=== PATIENT | male | born 1985 | race Caucasian/White ===

== ENCOUNTER 2020-05-31 14:04 | Outpatient (RCR) | payer OTHER, SELFPAY | END 2020-07-24 23:59 | LOC: IMMUN 14:04 | PROVIDERS: PCP Nurse Practitioner Family; Referring Provider Family Medicine; Visit Provider Family Medicine | DX: Z23 Encounter for immunization (principal) | CPT/HCPCS: 0001A; 0002A; 91300 ==

== ENCOUNTER 2022-08-11 08:00 | Outpatient (RCR) | payer OTHER, SELFPAY ==
--- NOTE | 2022-08-11 08:39 | BH.COMM_ITS ---
Communication Note - Communication with Client Communication Note: Met with pt today to complete initial paperwork. No si gnificant changes since pre-admission screening. Completed [place] [facility]. Denies active SI, plan, or intent. Does report passive thoughts with vague thoughts of what if I drove off the road?. Denies intent. Does report owning a firearm; however, pt is willing to give any firearms to a friend and reports her is willing to have therapist follow-up with his to ensure firearms are given to a support for safe storage. Consulted with Dr. Abarca with plan to admit to IOP with dx of F33.2
--- NOTE | 2022-08-11 09:00 | BH.SGPN.GN ---
Behaviors/Verbalizations/Mental Status: []Eye contact good. Motor activity appropriate. Speech within normal limits. Affect congruent, mood anxious and depressed. Thoughts linear, logical, no signs of hallucinations or delusions. Reviewed client?s symptom tracker, no risk for suicidal ideation, plan, or intent as of 08/11/2022. Client Response/Progress/Benefit: []Pt's first day of IOP tx. Pt reports high anxiety in the group setting, so he declined to share during his check-in. Pt admitted to IOP tx for severe depression, hopelessness, mood instability, and isolation. Pt appeared to benefit from starting IOP tx as the group structure and setting can help pt improve mental health symptoms. Pt will continue IOP tx to prevent decompensation and hospitalization. Narrative Note: []
--- NOTE | 2022-08-11 10:10 | BH.SGPN.GN ---
Behaviors/Verbalizations/Mental Status: []Client alert and oriented, casually dressed and groomed. Eye contact fair. Motor activity appropriate. Speech within normal limits. Affect constricted, mood depressed and anxious. Thoughts linear, logical, no signs of hallucinations or delusions. Client Response/Progress/Benefit: []Client was an active participant in group discussions and activity. Attentive during psychoeducation. Client engaged in activity in which group was able to make connections about how can be easier to find positives in others compared to self. Engaged in interactive discussion on the definition of perspective, how perspective is formed, and why perspective is important in treatment. Client shared his perspective towards treatment today is neutral. Will continue in IOP to increase healthy coping, stabilize moods, and prevent decompensation.
--- NOTE | 2022-08-11 14:38 | BH.MTP_ITS ---
Master Treatment Plan Patient Information Program Physician:: Dr. Abarca Primary Therapist:: Lyndsey Ellison, [facility] Psychiatric Diagnoses Psychiatric Diagnoses:: 1. Bipolar 2 disorder F31.81 2. Generalized anxiety disorder 3. Marijuana use disorder in partial remission Diagnosis Code(s):: F31.81 Estimated LOS Estimated LOS (in weeks):: 6 Problem/Goal #1 Problem/Goal #1 Stated Goal:: Client will increase mood stability, decrease depressive symptoms, and hopelessness due to Bipolar II disorder through Intensive Outpatient Program. Description of Barriers: Potential barriers include: cognitive distortions, unsure of commitment to program, negative thinking, avoidance of anxious situations, difficulty making decisions, and marital stress. Objectives Objective #1: Stated Objective: Client will learn and utilize 2-3 healthy coping strategies to manage depressive symptoms. Interventions: Therapist will utilize CBT techniques to assist client with understanding the connection between thoughts, feelings and behaviors. Education will be provided on behavioral activation. Therapist will assist client in learning internal coping strategies to manage depressive symptoms, along with helping client identify triggers. Discharge Criteria: Client will have achieved this goal when can verbalize and has practiced at least 2 healthy coping strategies that successfully manage depressive symptoms. Target Date: 09/22/22 Review Date: 09/08/22 Objective #2: Stated Objective: Pt will decrease depressive symptoms AEB pt?s score on the DSM 5 cross-cutting measure and improve pt?s daily functioning. Interventions: Through groups and individual therapy, pt will be provided with education on cognitive distortions, mistaken beliefs, and identifying and combating negative self-talk. Therapist will assist pt with getting back into the activities she once enjoyed as well as increasing healthy coping strategies. Discharge Criteria: Pt will have met this goal when pt?s score on the DSM 5 cross cutting measure for depression has been decreased and per pt?s report daily functioning has improved. Target Date: 09/22/22 Review Date: 09/08/22 Problem/Goal #2 Problem/Goal #2 Stated Goal:: Client will reduce overall frequency, intensity, and duration of the anxiety so that daily functioning is not impaired.? Description of Barriers: Potential barriers include: cognitive distortions, unsure of commitment to program, negative thinking, avoidance of anxious situations, difficulty making decisions, and marital stress. Objectives Objective #1: Stated Objective: Client will learn and implement 2-3 calming skills to reduce overall anxiety and manage anxiety symptoms. Interventions: Therapist and group sessions will help client identify physiological warning signs of anxiety, increase awareness of thoughts that increase anxiety, and identify behaviors that reinforce anxious symptoms. Group and individual counseling will teach client calming skills to help manage anxious symptoms. Discharge Criteria: Client will have achieved this goal when can verbalize at least 2 calming skills and reports skills successfully help reduce anxious symptoms. Target Date: 09/22/22 Review Date: 09/08/22 Objective #2: Stated Objective: Pt will decrease anxious symptoms AEB pt?s score on the DSM 5 cross-cutting measure improve pt?s daily functioning. Interventions: Through groups and individual therapy, pt will be provided education about anxiety?s impact on body and common physiological reaction to anxiety. Therapist will teach pt appropriate breathing techniques and build healthy coping skills to manage daily anxieties. Discharge Criteria: Pt will have met this goal when pt?s score on the DSM 5 cross cutting measure for anxiety has been decreased and per pt?s report daily functioning has improved. Target Date: 09/22/22 Review Date: 09/08/22
--- NOTE | 2022-08-11 15:28 | BH.COMM_ITS ---
Communication Note - Communication with Client Communication Note: This technical proposal writer spoke with client's informing her of plan for client to ask a family member to store his firearms until he feels more stable. Client's stated she will make sure the guns are removed from the house. This technical proposal writer informed client's that he is not reporting any active suicidal thoughts, but it would be the safest option at this time for him to not have access to guns. She expressed understanding.
--- NOTE | 2022-08-11 15:30 | BH.MDN_ITS ---
Multi-Disciplinary Note - Note 45-min Individual Time Started:: 12:10 Date: 08/11/22 Purpose of session/treatment goals addressed:: Purpose of session was to identify current symptoms and stressors, build rapport, and identify treatment goals for IOP. Eye Contact:: Good Motor Activity:: Appropriate Appearance:: Casual Speech:: Appropriate Mood:: Anxious, Depressed Affect:: Congruent Thoughts:: Linear, Logical, No evidence of hallucinations/delusions noted Staff Interventions:: psychoeducation on: - cognitive triangle, CBT techniques, rapport building, strengths perspective, treatment planning, goal setting, taught coping skills Client Response:: Client reported he is seeking treatment because he has not been able to come out of a depressive episode since February 2022. Client stated he was newly diagnosed with bipolar 2 in March 2022. Client reported he believes he started exhibiting symptoms of bipolar 2 about 3 years ago. Client stated for the last 3 years she has been cycling between having hypomania for a bout 6 months starting in mid August until February. Then from February until august he is in a depressed state with his current depressed state being the worst it has ever been. Client stated when he is hypomanic he is more motivated, feels alive, more productive, able to enjoy things, can be impulsive with money decisions, and is more irritable and short tempered. Client reported currently he does not experience steven any day and is just surviving. Client stated in January 2022 while on vacation his and him got into a significant argument in which his discussed potential separation. Client reported he believes this had triggered significant depression and has not been able to recover. 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 The farm seems to be a sense of contention. Client reported there is still continued distance and disconnection between him and his . Client stated while in treatment he would like to feel happy to wake up, being more productive, be able to return to work, and improve relationship with . Client reported he has been on many medications trials since being diagnosed with bipolar 2 with no success. Client stated he has been on lithium for about a week and has not noticed any difference. Client reported his been going to individual counseling for about a year but admits he has not followed through with many of the skills and goals provided to him by his therapist. Client receptive to learning about cognitive triangle and the importance of behavioral activation. Client worked with therapist to create a g oals list for tomorrow since he will be off work and does not have therapy. 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 Client feels like these tasks are realistic and doable. Risks/Concerns:: Client reports passive thoughts of denies active ideation, plan or intention. Client does have access to firearms in the home and is agreeable for this instructional writer to contact his to discuss plan of her removing the guns and giving them to a family member to hold until client is feeling more stable. Progress Toward Goals/Plan:: No progress noted given today is client's first day in treatment. Session focused on gathering background information, building rapport and identifying treatment goals. Client struggling with mood instability and is concerned he will find the medications that will help him feel less depressed and prevent a hypomanic state. Client to continue IOP to increase healthy coping, stabilize moods, and prevent decompensation. Time Stopped:: 12:55
--- NOTE | 2022-08-13 09:45 | BH.NA_ITS ---
Physical Data Vital Signs Pulse Rate: 84 Blood Pressure: 131/78 Height/Weight Height: 1.83 m Weight:: 95.254 kg Weight in Pounds: 210.0 lbs Current Medication Compliance Medication Compliance Do you take your medication as prescribed?: Yes Nutritional History Appetite Nutritional Instructions: Describe your appetite:: Good Have you noticed a change in your eating habits lately?: No Functional Assessment Sleep Pattern Describe any problems with sleeping: Client states he generally sleeps about 8-9 hours per night. Activities Motor Activity:: Functional Sensory/Communication Assess Communication Problems Do you have difficulty understanding what people are saying?: No Learning Assessment Education What is your level of education?: Bachelor Degree Medical Problems/History Cardiac Conditions Cardiovascular: Other (See comments) (history of slightly elevated cholesterol, not taking any medication) Pain Assessment Do you have acute or chronic pain?: No Surgical History Surgical History Have you had any surgeries? If so, list type and date:: Yes (rhinoplasty) Substance Abuse Substance Abuse Please describe substance abuse in the last 30 days:: Client states he drinks alcohol 1-2 days per week. Client states he had quit using nicotine pouches, but recently started using them daily again. Client states he had been a several year marijuana user, but quit in February. Client states he drinks 2 cups of coffee per day. Mental Status Summary Mental Status Significant Findings/Observations on Appearance and Mood:: Client is alert and oriented x 4. Client is casually groomed with good hygiene. Client is cooperative with assessment. Client makes fair eye contact. Client's voice has normal rate and volume. Client has a somewhat restricted affect. Client makes logical associations. Client has normal processing. Client denies delusions/hallucinations. Client reports some fleeting SI at times, but denies plan/intent. Suicide Assessment Suicidal Ideation Are you currently or have you been suicidal in the past?: Yes (fleeting at times, denies SI at this time) Suicidal Intentional Rating Scale (SIRS): Suicidal thoughts (past) Physician Notification Past Psychiatric History MH Treatment Hx Past Psychiatric Medications:: Started medication for mental health in April 2020- has taken Abilify, Wellbutrin, Lexapro, Prozac, Vraylar, Rexulti, Xanax Age of first mental health symptoms: Client was diagnosed with bipolar 2 in March 2021. Client had taken medication for mental health starting in 2020. Current providers for mental health treatment (counselor, psychiatrist, supportive employment case manager, etc.): Jocy Morrow MAINTENANCE ADVISOR for psychiatry through [facility], counselor Krystal at a private practice Fall Risk Assessment Age Age: Less than 60 Mental Status Mental Status: Willing & able to ask for assistance when needed Physical Status Physical Status: No problems Impairments Impairments: None Elimination Elimination: Continent AND independent Gait or Balance Gait or Balance: Walks independently Hx of Falls History of falls in the past 6 months: No known history Medications/Substances Psychotropics:: Mood stabilizers Medications/substances used within the past 24 hours or ordered to administer: 1-2 of the medications/substances listed above Total Score Total Points:: 1 RN Summary of Impressions Impressions Recommendations Impressions: Psychiatric Issues: Bipolar 2 disorder, Generalized Anxiety Disorder, marijuana use disorder in partial remission Level of Care How do the client's current symptoms and functional deficits support need for this level of care?: Client was referred to IOP by outpatient psychiatry for worsening depression. Client states in February his depression worsened and he took a couple of months off work. Client states he went back to work in April but states I think it was too soon, my depression wasn't better. Client reports frequent medication changes over the last several months. Client reports crying episodes, decreased motivation, decreased energy and anhedonia. Client reports some fleeting SI at times but denies plan or intent, but does state he has some survival ambivalence. IOP will promote gains and prevent further decompensation while providing social support and skills training.
[2022-08-13 10:10] VITALS: BP 131/78; PULSE 84
--- NOTE | 2022-08-13 10:15 | BH.SGPN.GN ---
Behaviors/Verbalizations/Mental Status: [] Client alert and oriented, casually dressed and groomed. Eye contact fair. Motor activity appropriate. Speech within normal limits. Affect constricted, mood anxious. Thoughts linear, logical, no signs of hallucinations or delusions. Client Response/Progress/Benefit: [] Client responded session by being attentive and taking notes. Client did not share input or reflect with group. Group identified the benefits of change which included: personal growth, positive perspective, increased confidence and increased autonomy. Worked with the group to identify barriers to change, which included: uncomfortable emotions such as anxiety, lack of awareness, low motivation, negative support system, and negative thinking. Client attentive in activity where they identified and discussed the emotions related to change. Appear to benefit from increased awareness and understanding of emotions, benefits, and barriers related to change. Will continue IOP tx to challenge negative thinking, increasing healthy coping, and prevent decompensation.
--- NOTE | 2022-08-13 11:15 | BH.SGPN.GN ---
Behaviors/Verbalizations/Mental Status: []Pt alert and oriented, neatly dressed and groomed. Eye contact good. Motor activity appropriate. Speech within normal limits. Affect flat, mood depressed. Thoughts linear, logical, no signs of hallucinations or delusions Client Response/Progress/Benefit: [] Pt responded well to session, attentive AEB participating in activity and actively engaging in group discussion. Group processed activity to relate the strategies used to overcome barriers in the activity to managing change in own life. Discussed and set SMART goal in group as it relates to change group members are wanting to make. Pt identified change they want as wanting to reconnect with friends. Identified being in the preparation stage as negative thinking and shame is keeping pt from following through. Pt stated to get to the action stage consistently, pt will need to challenge negative thoughts and communicate with supports. Appeared to benefit from identifying a small goal to work towards. Pt will continue IOP tx to further prevent decompensation, improve daily functioning, and gain healthy coping skills. ?? Narrative Note: []
--- NOTE | 2022-08-13 12:28 | BH.PSY.EVA_ITS ---
Psychiatric Evaluation Initial Evaluation Initial Evaluation: History of Present Illness: [] The patient is a 36-year-old male with a recent diagnosis of bipolar 2 disorder who was referred to the [facility] IOP program by his outpatient psychiatric provider. The patient has been for 7 years and currently lives with his in [place], [place]. 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 He also is taking FMLA now in order to participate in the IOP program. His biggest stressors have been since the fall 2019 when he changed his financial aid counselor work to the type of work that gets paid by [employer]. He has found this to be extremely stressful and he feels it has worsened his tendency to become depressed. 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 He gives decreased need for sleep at that time where he sleeps less than 6 hours a night and is not tired. He has excessive spending of money, rapid thoughts and gets a lot of work done during those months. This. Last usually 2 to 3 months he states and he also has a euphoric feeling during this time. His notices he is different during this time and they have some marital stress do especially to the excessive spending of money and he has done in the fall for the past 3 years. He states that the rest of the year he remains pretty much depressed and at times severely depressed in recent months. He endorses sadness, worthlessness, hopelessness, guilt and anhedonia. He has 1-2 crying spells a day. He is anxious about his job and his marriage. He is having a few mild panic attacks a week. He is getting 8 to 9 hours of sleep a night but feels tired and has low energy during the day. He has decreased concentration. He drinks 1 to 2 cups of coffee a day. Appetite and weight are okay. He denies a history of trauma, abuse, PTSD, OCD, head trauma or seizures. Also denies self-harm or eating disorder. He does admit to passive thoughts of and he admits to fleeting, passive suicidal ideation where he briefly considers driving off the road but he states that he has never come remotely close to doing this and he feels that his family is protective against him ever committing suicide. He has a long history of daily marijuana use but has been sober for the past 6 months off of marijuana. Current Psychiatric Medications: [] The patient has tried a number of meds and has not done well on them. He is currently on lithium carbonate 300 mg p.o. twice daily and has been on this dose for 4 days. He was on resulting but this was stopped 10 days ago because it made him have increased crying episodes. Past Psychiatric History: [] No psych admits. No suicide attempts ever. He has been depressed since age 32 and started psych meds around age 35. He started counseling last year. He has a psychologist counseling and a counselor. He was diagnosed with bipolar 2 in March 2022. Wellbutrin, Lexapro, Prozac, Vraylar and result he did not help or made him worse. Abilify helped him at first for 2-1/2 months but he remained mildly depressed so ended up stopping it. In August to January of 2020 he tried Adderall and Concerta for his fatigue and the Adderall made his anxiety and depression worse and the Concerta made him become hypomanic he thinks. He also tried Xanax but has not used any since January 2022. Substance Use History: [] Marijuana use daily for 10 years but stopped smoking in February with 1 relapse a month ago. He drinks 1-2 drinks of alcohol once a week. He used nicotine dip last weekend but he quit using mouth 2 months ago. He denies any other drug use and no rehab ever. Allergies: [] No known allergies Medications: [] Psych meds only as dictated above. Past Medical History: [] Moderate hypercholesterolemia. Rhinoplasty as a child. No other illnesses or surgeries. Up-to-date on his immunizations. Family Psychiatric History: [] He has a few aunts that takes psych medicine but he does not know what their condition is. His father and brother have untreated anxiety. Great-grandmother was bedridden off-and-on in her life for mental health issues but they do not know what they were. No completed suicides in the family. Personal/Social History: [] Patient was born and raised on a farm in [place]. He describes his childhood as happy. He denies any history of verbal, emotional or physical or sexual abuse or trauma. 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 He finds working and taking care of the farm extremely stressful and tiring. He feeds the animals every morning but is has trouble finding the time to keep up the farm and every other way. He has been for 7 years and describes his marriage is strained now due to their financial and his mental health issues. No children. His is 32 years old and works as a pediatric nurse practitioner and is supportive of him. His parents were and loving and he has 1 brother who is 18 months younger than him and they are close. 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 No DUIs. No arrests. Review of Systems: [] Patient has some issues with constipation but his review of systems is otherwise negative except as noted in the present illness. Vital Signs: [] Vital signs are reviewed in records and in the nurses notes and updated and the patient is deemed medically able to participate in the IOP program. Mental Status Examination: [] The patient is a 54-year-old male who is fit for stated age and casually dressed and groomed with good hygiene. He is ambulatory with a normal gait and has no psychomotor agitation or retardation. Eye contact is good and speech is normal rate and rhythm and fluent with no pressure. He is alert and oriented to person place and time. Mood is depressed. Affect is flat. Thought process is goal-directed and organized. Thought content: There is evidence of passive thoughts of and evidence of fleeting, passive suicidal ideation. There is no evidence of active suicidal ideation, homicidal ideation or definitive plan for suicide. There is no evidence of hallucinations or delusions. Reality testing is intact. Judgment is good. Insight is fair. Impulsivity is moderate. Diagnoses: [] 1. Bipolar 2 disorder 2. Generalized anxiety disorder 3. Marijuana use disorder in partial remission 4. Primary support, work and financial issues Plan: [] The patient will start the IOP program at [facility] as the structure, support, education and group therapy will hopefully prevent worsening of the patient's symptoms which could require hospitalization. He felt safe during the interview and if it anytime he does not feel safe he agrees to let us know or go to the emergency room. The risk, options, possible complications and side effects of the medications were discussed with the patient and he understands them and accepts these. His GeneSight testing was reviewed in detail with him. The patient agrees to get his lithium blood work on Thursday, August 18 for the recent dose increase. He will get it in the morning as directed. He also agrees to try Abilify 2 mg p.o. daily and prescription is sent in for this as the patient improved on this in the past and coupled with the lithium may obtain significant improvement now. He will continue to follow- up with his outpatient providers and I will see the patient in follow-up in 1 to 2 weeks.
--- NOTE | 2022-08-13 12:41 | BH.DR.ITP ---
Initial Treatment Plan Patient Information Visit Information: ADMISSION DATE: EXPECTED LOS: 4-6 weeks Problems/Symptoms Problem #1:: Mood instability Symptom:: Sadness, hopelessness, guilt, anhedonia, worthlessness, low energy, decreased concentration, passive thoughts of , passive, fleeting suicidal ideation Problem #2:: Anxiety Symptom:: Worry, rumination, panic attacks
--- NOTE | 2022-08-15 09:00 | BH.SGPN.GN ---
Behaviors/Verbalizations/Mental Status: [] Eye contact is good. Motor activity is appropriate. Appearance is casual. Speech is Appropriate. Mood is anxious. Affect is congruent. Thoughts are linear and logical. No evidence of psychosis. Reviewed daily check in sheet and no reports of suicidal ideations or intent. Client Response/Progress/Benefit: [] Pt participated at times during the group discussion. Attentive. Client reported mental positive as following through with goals set and individual therapy. Client noted he was able to even do more than what he had initially stated he would do because it helped improve his motivation to see things get accomplished. Client noted additional mental positive as spending time with friends and playing games with his and her best friend. Shan for current stressor is his 's best friend staying over the long weekend. Benefited from group support, encouragement, and feedback. Will continue in IOP to prevent decompensation, stabilize mood, and improve functioning.
--- NOTE | 2022-08-15 10:10 | BH.SGPN.GN ---
Behaviors/Verbalizations/Mental Status: []Eye contact is good. Alert and oriented. Motor activity is appropriate. Appearance is casual. grooming is appropriate. Speech is Appropriate. Mood is anxious and depressed. Affect is congruent. Thoughts are linear and logical. No evidence of psychosis or hallucinations. Client Response/Progress/Benefit: []Client passive participate AEB providing no contributions, however did appear to listen attentively to others. The group identified the impact of emotions on communication such as change in tone, body language, shutting down, misperceiving the communication, and reassurance seeking. During group activity, client did well to challenge himself to participate and reflected on feeling anxious about having to trust other's instructions in order to accomplish his goal. Client benefited from session by gaining an increased understanding on the importance of managing emotions to improve daily functioning. Client will continue IOP to improve mood stability, improve symptom management, and prevent decompensation. Narrative Note: []
--- NOTE | 2022-08-15 11:10 | BH.SGPN.GN ---
Behaviors/Verbalizations/Mental Status: []Pt alert and oriented, neatly dressed and groomed. Eye contact good. Motor activity appropriate. Speech within normal limits. Affect congruent-smiling, mood euthymic. Thoughts linear, logical, no signs of hallucinations or delusions. Client Response/Progress/Benefit: [] Pt engaged in session AEB Pt listening attentively to peers and providing input. Attentive during psychoeducation on 4 zones of regulation. Pt able to identify feelings and behaviors for each zone. Pt identified coping skills one can use to support self in each zone. Pt reports belief they are in the ?blue? zone today and pt wants to focus on exercising and working on small goals to help pt in this zone. Benefited from increased education on zones of regulation or stages of alertness for emotions and healthy coping skills to use for each zone. Will continue IOP tx to prevent decompensation, improve daily functioning, and reduce negative thinking patterns. Narrative Note: []
== END 2022-08-15 23:59 ==
LOC: BHIOP 08:00
PROVIDERS: PCP Nurse Practitioner Family; Referring Provider Psychiatry & Neurology Psychiatry; Visit Provider Psychiatry & Neurology Psychiatry
DX: F31.81 Bipolar II disorder (principal); F41.1 Generalized anxiety disorder; F12.91 Cannabis use, unspecified, in remission
CPT/HCPCS: S9480; 90834; 90853

== ENCOUNTER 2022-08-18 07:19 | Outpatient (RCR) | payer OTHER, SELFPAY ==
[2022-08-16 01:48] VITALS: BP 131/78; PULSE 84
--- NOTE | 2022-08-18 09:00 | BH.SGPN.GN ---
Behaviors/Verbalizations/Mental Status: [] Eye contact is poor. Motor activity is appropriate. Appearance is casual. Speech is Appropriate. Mood is depressed. Affect is flat. Thoughts are linear and logical. No evidence of psychosis. Reviewed daily check in sheet and pt reports 1/5 for suicidal thoughts and 0/5 for intent. This is baseline since entering the program. Client Response/Progress/Benefit: [] Pt did not participat in group discussions. Declined to share when asked. Attentive AEB by head-nodding and smiling during group discussions. Daily symptom tracker notes 3/5 for depression and anxiety. Limited progress noted due to not interacting with group this AM. Will continue in IOP to prevent decompensation, increase healthy coping, and improve functioning to return to work. Narrative Note: []
--- NOTE | 2022-08-18 10:10 | BH.SGPN.GN ---
ions/Mental Status: [] Eye contact is good. Motor activity is appropriate. Appearance is casual. Speech is Appropriate. Mood is anxious and dysthymic. Affect is constricted. Thoughts are linear and logical. No evidence of psychosis. Client Response/Progress/Benefit: [] Pt did not participate in group discussions however was attentive. Participated in and was engaged during experiential activity. Attentive during interactive discussion on what failure means to the group in which peers identified that failure is ... not meeting expectations, not having a desired outcome, and not succeeding in a task. Group was able to identify how fear of failure can lead to inaction, complacency, pushing people away, poor self-care, and self-sabotage. Attentive during interactive discussion on the role that FOF plays in mental wellness, depression, anxiety, and growth. Able to connect the experiential activity to FOF. Benefited from increased awareness of how the role that FOF plays in mental health and decision-making. Will continue in IOP to increase use of calming skills to manage anxious symptoms, challenge negative thinking, work through guilt, and prevent decompensation.
--- NOTE | 2022-08-18 15:13 | BH.MDN ---
Multi-Disciplinary Note Note 60-min Individual: Time Started:: 11:10 Date: 08/18/22 Purpose of session/treatment goals addressed:: Purpose of session was to address goals 1 and 2 from [facility]. Time Stopped:: 13:10
--- NOTE | 2022-08-20 09:03 | BH.SGPN.GN ---
Behaviors/Verbalizations/Mental Status: [] Eye contact good. Motor activity appropriate. Speech within normal limits. Affect congruent, mood anxious and depressed. Thoughts linear, logical, no signs of hallucinations or delusions. Reviewed client?s symptom tracker, no reported suicidal ideation, denies plan, or intent as of 08/20/2022. Client Response/Progress/Benefit: [] Client receptive of session, attentive and willing to process with group. Identified mental health ?wins? as completing several small goals this morning despite feeling more down and less motivated to do so. Indicated using opposite action to challenge himself to spend time swimming with family the previous day as well and shared feeling proud of this as a result. Current stressor noted as ongoing marital tension related to pt?s mental health. Shared trying to focus on doing what he can to continue to promote progress rather than ruminate on this. Client appeared to benefit from group support and encouragement. Recommended continued IOP tx to continue to provide emotional support, improve mood stability, as well as prevent decompensation. Narrative Note: []
--- NOTE | 2022-08-20 10:05 | BH.SGPN.GN ---
Behaviors/Verbalizations/Mental Status: [] Client alert and oriented, casually dressed and groomed. Eye contact good. Motor activity appropriate. Speech within normal limits. Affect full, mood anxious. Thoughts linear, logical, no signs of hallucinations or delusions. Client Response/Progress/Benefit: [] Client was an active participant in activity and taking notes during group discussion and provided input in during group discussions.. Attentive during psychoeducation on coping skills, why people use unhealthy coping skills, and how to replace unhealthy coping skills. Group came up with list of negative coping skills that included substance use, avoidance, lashing out, and escaping from reality. Group discussed the effects of how negative coping skills can impact mental health in a negative way which included lack of positive supports. Benefited from increased understanding of unhealthy coping skills and the need for developing healthy interna and external coping skills. Client will continue IOP tx to prevent decompensation and increase overall functioning. Narrative Note: []
--- NOTE | 2022-08-20 11:05 | BH.SGPN.GN ---
Behaviors/Verbalizations/Mental Status: [] Client alert and oriented, neatly dressed and groomed. Eye contact good. Motor activity appropriate. Speech within normal limits. Affect constricted, mood anxious. Thoughts linear, logical, no signs of hallucinations or delusions. Client Response/Progress/Benefit: [] Client responded well to session AEB taking notes and providing input and examples throughout. Group discussed the different categories of coping skills which included distraction, emotional release, grounding, self-love, and thought challenging. Client created a coping skill menu identifying various skills to try in each category. Client?s coping skill menu included: cleaning, talking with friend, deep breathing, taking long shower, and radical acceptance. Appeared to benefit from increasing repertoire of healthy coping skills. Client will continue IOP tx to improve daily functioning, prevent decompensation, and increase application of healthy coping skills. Narrative Note: []
--- NOTE | 2022-08-22 09:00 | BH.SGPN.GN ---
Behaviors/Verbalizations/Mental Status: [] Eye contact is good. Motor activity is appropriate. Appearance is casual. Speech is Appropriate. Mood is depressed. Affect is congruent. Thoughts are linear and logical. No evidence of psychosis. Reviewed daily check in sheet and pt reports 1/5 for suicidal thoughts and 0/5 for intent. This is baseline for patient. Client Response/Progress/Benefit: [] Pt participated when prompted. Attentive. Emotion for today is optimistic. Daily symptom tracker notes 3/5 for depression and anxiety. Pt shared that he has been attempting to utilize skills such as re-framing and opposite action with some benefit. I woke up yesterday feeling down however reframed and forced himself to work outside and make breakfast for rather than isolate. Insight on how this positively impacted his mood. Progress noted as he is beginning to feel less powerless over his mood. He scheduled at date night and is actively working on repairing his relationship by being more engaged with support. Benefited from group support, encouragement, and feedback. Will continue in IOP to prevent decompensation, stabilize mood, and improve functioning to return to work. Narrative Note: []
--- NOTE | 2022-08-22 10:10 | BH.SGPN.GN ---
Behaviors/Verbalizations/Mental Status: []Client alert and oriented, casually dressed and groomed. Eye contact good. Motor activity appropriate. Speech within normal limits. Affect congruent, mood euthymic. Thoughts linear, logical, no signs of hallucinations or delusions. Client Response/Progress/Benefit: []Client receptive to session AEB providing input throughout, listening attentively to others, and taking notes. Attentive throughout psychoeducation on the cognitive triangle and maintenance cycles. Worked on identifying own vicious cycle. Engaged in group discussion reviewing the impact of daily activities and behaviors in either reinforcing unhealthy maintenance cycles and depression or assisting in reducing symptoms (?down? vs ?up? activities). Client identified common ?down? activities they engage in as: staying in bed, not showering, watching tv, not shaving, and avoiding chores. Common ?Up? 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 Appeared to benefit from increased awareness of current behaviors and impact these have on mental health. Pt to continue IOP to increase consistent use of healthy coping, challenge negative thinking, and prevent decompensation.
--- NOTE | 2022-08-22 11:15 | BH.SGPN.GN ---
Behaviors/Verbalizations/Mental Status: []Pt alert and oriented, neatly dressed and groomed. Eye contact good. Motor activity appropriate. Speech within normal limits. Affect congruent, mood euthymic. Thoughts linear, logical, no signs of hallucinations or delusions. Client Response/Progress/Benefit: []Pt responded well to session, attentive and engaged in activity. Group shared having patience and being willing to re-evaluate helped the group be success. Group discussed values and the benefits that knowing one's values can have on one's mental health. These included: increasing motivation, resolved cognitive dissonance, and less stress. Pt explored own values and identified physical wellness and personal relationships as their top two values. Pt set a goal to schedule a date night once a week with his to live according to values. Pt appeared to benefit from exploring values and creating a weekly goal. Pt will continue IOP tx to prevent decompensation, combat negative self-talk, and further improve use of healthy coping skills. Narrative Note: []
--- NOTE | 2022-08-25 09:00 | BH.SGPN.GN ---
Behaviors/Verbalizations/Mental Status: []Pt alert and oriented, neatly dressed and groomed. Eye contact good. Motor activity appropriate. Speech within normal limits. Affect constricted-holding back tears, mood indifferent. Thoughts linear, logical, no signs of hallucinations or delusions. Reviewed pt?s symptom tracker, no risk for suicidal ideation, plan, or intent as 08/25/22 Client Response/Progress/Benefit: []Pt responded well to session, attentive and engaged. Pt reports feeling indifferent this morning as pt had a deep conversation with his over the weekend about their future. Pt became tearful and shared he is glad he had the difficult conversation, but there are a lot of tough decisions that need made because of their talk. Pt reported he utilized healthy coping skills like going fishing and opposite action to help manage anxiety after the talk. Pt appeared to benefit from reflecting on application of healthy coping skills. Pt will continue IOP tx to prevent decompensation, improve energy and motivation, and increase self-confidence. Narrative Note: []
--- NOTE | 2022-08-25 10:15 | BH.SGPN.GN ---
Behaviors/Verbalizations/Mental Status: [] Eye contact is good. Motor activity is appropriate. Appearance is casual. Speech is Appropriate. Mood is depressed. Affect is flat. Thoughts are linear and logical. No evidence of psychosis. Client Response/Progress/Benefit: [] Limited participation in group discussions however did complete worksheets on the topic. Attentive during psychoeducation. Attentive during interactive discussion on types of support. Group identified several forms of support which included; friends, family, therapy, professionals, support groups, co-workers, social media, spirituality, medications, local agencies, etc. Pt Attentive during the group discussion on the importance of support which they identified leads to; accountability, can motivate, decreased loneliness, connection with others, improved relationships, increased self-confidence, can lessen one's stress and responsibilities, and is fun/ distracting. Patient identified the obstacles/barriers to seeking support and utilizing the support they currently have in place which included fear of overusing it and also fear to use it at times, lack of planning. Benefited from increased awareness of healthy supports and the importance of balanced support. Will continue in IOP to prevent decompensation, stabilize mood, and improve functioning to return to work. Narrative Note: []
--- NOTE | 2022-08-25 11:15 | BH.SGPN.GN ---
Behaviors/Verbalizations/Mental Status: []Client alert and oriented, casually dressed and groomed. Eye contact good. Motor activity appropriate. Speech within normal limits. Affect congruent, mood depressed and anxious. Thoughts linear, logical, no signs of hallucinations or delusions. Client Response/Progress/Benefit: [] Client was an active participant throughout AEB contributing to group discussion, participating in the activity, and taking notes. Client provided input during discussion on the types of support our supports can provide (social, emotional, tangible, and informational). Able to identify the types of support pt?s own support system provides for them. Client reported gaining awareness that they could benefit from more emotional specific support. Shared this will help to provide him with a more balanced perspective. Client identified steps to achieve this as reaching out to his support net more consistently and allowing himself to be more honest and vulnerable when communicating. Client seemed to benefit from identifying support elizabeth client could benefit from improving. Recommended to continue IOP tx to increase healthy coping, promote mood stability, and improve overall functioning. Narrative Note: []
--- NOTE | 2022-08-27 09:00 | BH.SGPN.GN ---
Behaviors/Verbalizations/Mental Status: []Pt alert and oriented, casually dressed and groomed. Eye contact good. Motor activity appropriate, at times restless. Speech within normal limits. Affect congruent, mood anxious and dysthymic. Thoughts linear, logical, no signs of hallucinations or delusions. Reviewed pt?s symptom tracker, no risk for suicidal ideation, plan, or active intent as of 08/27/22 Client Response/Progress/Benefit: []Pt responded well to session, open to contributing with group and engaged. Pt reports feeling conflicted this morning, explaining that he is trying to make a decision about his current living situation and his ?s desire to move. 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 Additional win noted as continuing to make progress in completing his behavior activation goals and finding his mood has improved as a result. Pt appeared to benefit from reflecting on mental health wins. Pt will continue IOP tx to promote mood stability, reduce maladaptive thought patterns, and increase consistent use of behavior activation skills. Narrative Note: []
--- NOTE | 2022-08-27 11:10 | BH.SGPN.GN ---
Behaviors/Verbalizations/Mental Status: [] Eye contact is good. Motor activity is appropriate. Appearance is casual. Speech is Appropriate. Mood is depressed. Affect is congruent. Thoughts are linear and logical. No evidence of psychosis. Client Response/Progress/Benefit: [] Pt participated at times during group discussions. Participated in experiential activity. Attentive during psychoeducation. Attentive during interactive discussion on strategies to overcome several obstacles to mental wellness including People-pleasing, Low Self-esteem, unhealthy coping skills, isolation, loneliness, and negative thinking. Pt choose the barrier of people-pleasing to work on this week and identified strategies to incorporate including honest communication. Benefited from increased awareness of obstacles to mental wellness and strategies to help overcome those obstacles. Will continue in IOP to prevent decompensation, stabilize mood, improve functioning to return to work, and increase healthy coping skills. Narrative Note: []
--- NOTE | 2022-08-27 11:57 | PCM.BH.PN ---
Progress Note Progress Note: History of Present Illness/Interim History: The patient is a 36-year-old male with a history of bipolar depression, anxiety who is seen in follow-up at the [facility] behavioral health IOP program. I last saw the patient 2 weeks ago and at that time Abilify was added to help with his depression as he had tolerated it well in the past and has great difficulty tolerating medications. [place] labs were also ordered at that time. The patient states that his mood is a little bit better and he feels that he is less depressed now. 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 Patient states that he is no longer having crying spells but on occasion he does tear up but the crying has ended and he was having 1 or 2 crying spells a day. He is still having a few very mild possible panic attacks a week. He no longer feels hopeless but he does still endorse worthlessness and guilt. He is still sleeping 8 to 9 hours a night and his energy is a little better now than it was before. He does admit to occasional passive thoughts of but less so than before. He now denies fleeting, passive suicidal ideation. He also denies active suicidal ideation, plan for suicide, homicidal ideation, hallucinations or delusions. He remains sober off marijuana for about 6 months. Current Psychiatric Medications: [] [place] carbonate 600 mg p.o. total daily for 2-1/2 weeks now. Abilify 2 mg p.o. daily for 2 weeks now. Blood work: The patient got his lithium blood work on August 18, 2022 and his level was low at 0.3 and his renal panel was within normal limits as was his TSH. Mental Status Examination: [] The patient is a 54-year-old male who is fit for stated age and is casually dressed and groomed with good hygiene. He has no psychomotor agitation or retardation and is ambulatory with a normal gait. Eye contact is good and speech is normal rate and rhythm and fluent with no pressure. Mood is depressed. Affect is constricted. Thought process is goal-directed and organized. Thought content: There is evidence of passive thoughts of . There is no evidence of passive suicidal ideation, active suicidal ideation, plan for suicide, homicidal ideation, hallucinations, delusions, symptoms of jeremy. Reality testing is intact. Judgment is good. Insight is fair and improving. Impulsivity is moderate. Diagnoses: [] 1. Bipolar 2 disorder 2. Generalized anxiety disorder 3. Marijuana use disorder in partial remission 4. Primary support, work and financial issues Plan: [] The patient will continue the IOP program at [facility] as the structure, support, education and group therapy will hopefully prevent worsening of the patient's symptoms. He felt safe during the interview and if it anytime he does not feel safe he agrees to let us know or go to the emergency room. The risks, options, possible complications and side effects of the medications were again discussed with the patient and he understands and accepts these. The patient agrees to increase his lithium carbonate ER to 900 mg total daily and prescription is sent in for this. He will take 600 mg p.o. nightly and 300 mg p.o. every morning of lithium carbonate ER. He will continue the Abilify at the current dose. [place] blood work was ordered to be done about September 04 about 1 week after increasing the lithium dose and he understands that he should not take his morning dose of lithium and should obtain the blood work about 8 to 10 hours after taking the evening dose of lithium. He will continue to follow-up with his outpatient providers and I will see the patient in follow-up in 2 weeks.
--- NOTE | 2022-08-28 10:10 | BH.SGPN.GN ---
Behaviors/Verbalizations/Mental Status: [] Eye contact is good. Motor activity is appropriate. Appearance is casual. Speech is Appropriate. Mood is anxious. Affect is congruent. Thoughts are linear and logical. No evidence of psychosis. Client Response/Progress/Benefit: []Pt engaged participant AEB listening to others, engaging in activity, and providing feedback at times. Attentive during psychoeducation and provided insight into obstacles in the way of mental wellness. Pt shared with group current mental health reality and desired mental health reality. Stated processing his thoughts as one step he is currently making to get closer to desired reality. Identified barriers to desired reality include: people pleasing, negative self-talk, and negative coping skills. Benefited from taking look at current mental health state and obstacles for progress. Pt to continue IOP to improve ability to make decisions, continue use of healthy coping, and prevent decompensation.
--- NOTE | 2022-08-29 09:00 | BH.SGPN.GN ---
Behaviors/Verbalizations/Mental Status: [] Pt alert and oriented, neatly dressed and groomed. Eye contact good. Motor activity appropriate. Speech within normal limits. Affect constricted, mood anxious. Thoughts linear, logical, no signs of hallucinations or delusions. Reviewed pt?s symptom tracker, no risk for suicidal ideation, plan, or intent 08/29/22 Client Response/Progress/Benefit: []Pt responded well to session, attentive and engaged. Pt reports feeling conflicted this morning as pt continues to weigh the pros and cons of moving or not. Pt stated he has some time to decide, but it is still stressful. pt reported he is proud of himself for having difficult conversations with his and for reaching out to a friend recently. Pt also feels that he is able to think more clearly which had not been the case for several months. Pt appeared to benefit from coming to IOP tx instead of isolating. Pt will continue IOP tx to prevent decompensation, improve daily functioning, and reduce negative thinking patterns. Narrative Note: []
--- NOTE | 2022-08-29 10:10 | BH.SGPN.GN ---
Behaviors/Verbalizations/Mental Status: []Pt alert and oriented, casually dressed and groomed. Eye contact good. Motor activity appropriate. Speech within normal limits. Affect congruent, mood calm. Thoughts linear, logical, no signs of hallucinations or delusions. Client Response/Progress/Benefit: []Pt receptive of session, actively engaged throughout AEB taking notes and listening to discussion. Appeared to connect with group topic of cognitive distortions and the impact of thought patterns on mental health, coping behaviors, and relationships. Pt reports connecting with distortions of shoulds/musts. Pt stated he will often use shoulds on himself which result in feeling guilty and keep him stuck in depressed cycle. Pt appeared to benefit from gaining insight on distorted thinking patterns and how this impacts overall mental health. Will continue IOP tx to increase confidence, increase consistent use of skills, and prevent decompensation.
--- NOTE | 2022-08-29 11:10 | BH.SGPN.GN ---
Behaviors/Verbalizations/Mental Status: [] Eye contact is good. Motor activity is appropriate. Appearance is casual. Speech is Appropriate. Mood is depressed. Affect is congruent. Thoughts are linear and logical. No evidence of psychosis. Client Response/Progress/Benefit: [] Pt participated when prompted during group discussions. Pt was placed in a smaller group and participated in quiz-show format in which small groups competed against each-other to answer questions based on identifying, challenging, and reframing cognitive distortions. Pt was engaged in her smaller group, participated in group interactions to brainstorm answers, and appeared to be comprehending cognitive distortions. Stated I'm dealing with more of these than I thought I need to be able to identify them when they occur, cope, and not believe in them. Benefited from gaining further insight and awareness of cognitive distortions as well as practicing ways to reframe and challenge thoughts. Will continue in IOP to prevent decompensation/ re-admission, stabilize mood, and improve functioning. Narrative Note: []
--- NOTE | 2022-09-01 09:00 | BH.SGPN.GN ---
Behaviors/Verbalizations/Mental Status: [] Eye contact is good. Motor activity is appropriate. Appearance is casual. Speech is Appropriate. Mood is depressed. Affect is congruent. Thoughts are linear and logical. No evidence of psychosis. Reviewed daily check in sheet and no reports of suicidal ideations or intent. Client Response/Progress/Benefit: [] Pt participated when prompted. Attentive. Daily symptom tracker noted 02/20 for depression/anxiety. Pt shared that he continues to practice internal and external skills. More engaged with his rather than isolating and avoiding her as well as psychosocial stressors. We had a good conversation. Had episodes of depression over the weekend however took active role in addressing his mood rather than isolation, ruminate, and not challenge negative automatic thoughts. Utilizing opposite action to improve mood I did some projects which was helpful. Improved communication with led them to make some important future and financial decisions. Progress noted per pt report as he is more engaged with support and is utilizing coping strategies more consistently. Benefited from group support, encouragement, and feedback. Will continue in IOP to maintain safety, stabilize mood, and improve functioning to return to work. Narrative Note: []
--- NOTE | 2022-09-01 10:15 | BH.SGPN.GN ---
Behaviors/Verbalizations/Mental Status: []Pt alert and oriented, casually dressed and groomed. Eye contact good. Motor activity appropriate. Speech within normal limits. Affect congruent, mood anxious and depressed. Thoughts linear, logical, no signs of hallucinations or delusions. Client Response/Progress/Benefit: []Pt responded well to session, attentive and providing to discussion. Pt connected with the quote and discussion reviewing the functions of various emotions. Attentive throughout psychoeducation on the functional role and benefits of guilt, as well as differences between appropriate and inappropriate guilt. Group discussed the harmful impacts of unmanaged guilt which included poor boundaries, feeling inadequate, and creating an unhealthy maintenance cycle. Pt participated in group activity highlighting the impacts of inappropriate guilt in team collaboration or reaching a goal. Pt then completed a self-reflection activity in which they identified their own experiences with inappropriate guilt and impacts on pt?s mental health. 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 Pt appeared to benefit from learning about the different types of guilt and how unmanaged guilt can impact mental health. Pt will continue IOP tx to promote mood stability, increase communication with supports, and continue to improve daily functioning. Narrative Note: []
--- NOTE | 2022-09-01 15:21 | BH.MDN ---
Multi-Disciplinary Note Note 45-min Individual: Time Started:: 11:10 Date: 09/01/22 Purpose of session/treatment goals addressed:: Purpose of session was to address goals 1 and 2 from MTP. Eye Contact:: Fair Motor Activity:: Appropriate Appearance:: Casual Speech:: Appropriate Mood:: Euthymic, Anxious and Other (sad) Affect:: Congruent Thoughts:: Linear, Logical and No evidence of hallucinations/delusions noted Staff Interventions:: thought challenging (practiced challenging distortions in session), CBT techniques, mindfulness skills (grounding), strengths perspective, goal setting and taught coping skills Client Response:: Client engaged in session AEB sharing thoughts and feelings. Client reported he did not complete homework from last session of completing a decisional balance worksheet about moving, but he did reflect on it. Client stated he is about 95% sure he will be moving to [place] with his . Client reported he thinks it will be the best decision for him. 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 Client reported he is feeling anxious about having to tell his family that he will be moving out of state. 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 Client able to challenge distortions with help of therapist. Client starting to recognize that he can still have relationship with his dad and brother, but it might take more effort on his part to reach out and make that connection. Client able to identify that he is experiencing some unhealthy guilt about moving and having to sell his land. Client stated he feels like he is a failure for not following through with his goals of having land and building a new house. Client worked with therapist to challenge his negative thoughts. Client reported he is also feeling guilty because his family has helped significantly with taking care of his land. Client starting to connect the negative impact cognitive distortions has on his mental health. Client and therapist reviewed treatment progress at mid-point. Client stated he can note decrease in depression, anxiety, improved productivity around the house and farm, and decreased avoidance of things that make him anxious. Client reported he is using opposite action each day to help him stay on a routine instead of laying around. Client reported he would like to continue reinforcing his skills and increase use of calming skills for his anxiety. Client stated his goals are to having moving conversation with his family by Thursday and to practice calming skills daily. Risks/Concerns:: denies suicidal ideation, plan or intention to date. Progress Toward Goals/Plan:: Progress noted with client reporting improved mood, decreased depression, decreased anxiety, improved daily functioning, and increased hopefulness. Client still reports feeling anxious, but could be attributed to making a big life decision about moving to another state. Client does report being able to manage situations better than he would've a few weeks ago. Client to continue IOP to continue use of skills, challenge distortions, and prevent decompensation. Time Stopped:: 12:00
--- NOTE | 2022-09-03 09:00 | BH.SGPN.GN ---
Behaviors/Verbalizations/Mental Status: [] Eye contact is fair. Motor activity is WNL. Appearance is casual. Speech is Appropriate. Mood is anxious. Affect is constricted. Thoughts are linear and logical. No evidence of psychosis. Reviewed daily check in sheet and no reports of suicidal ideations or intent. Client Response/Progress/Benefit: [] Pt participated when prompted. Attentive. Daily symptom tracker notes 2/5 for depression and 2/5 for anxiety. Client reported mental health positive as going to spend time with friends today. Client shared was feeling stressed last night and this morning because had an argument with his . Client reported he used grounding and breathing tools this morning and reported it actually worked. Reported the skills helped him feel less anxious. Seemed to benefit from support from peers. Will continue in IOP to continue use of healthy coping skills, challenge distortions, and prevent decompensation.
--- NOTE | 2022-09-03 11:15 | BH.SGPN.GN ---
Behaviors/Verbalizations/Mental Status: []Client alert and oriented, casually dressed and groomed. Eye contact good. Motor activity appropriate. Speech within normal limits. Affect congruent, mood anxious and dysthymic. Thoughts linear, logical, no signs of hallucinations or delusions. Client Response/Progress/Benefit: []Client was an active participant throughout AEB contributing to group discussion and taking notes. Client provided input during small group discussion on strategies to combat each factor maintaining adverse nutritional cycles. Worked with group to identify ways to foster more mindful nutritional choices. Each group participant identified one small step they could take today to begin establishing mental wellness promoting nutritional choices. Client shared plans to?create a weekly meal plan ot buying fast food out of convenience.?Appeared to benefit from gaining insight into mental wellness centered nutrition and identifying personal steps client can take to support own nutritional psychology. Recommended continued IOP tx to further increase healthy conflict resolution and communication with supports, promote mood stability, and improve overall functioning.? Narrative Note: []
--- NOTE | 2022-09-03 13:25 | BH.TPR ---
Treatment Plan Review Demographics Date of Admission:: 08/11/22 Date of Treatment Plan Review:: 09/03/22 Admitting Diagnoses:: 1. Bipolar 2 disorder 2. Generalized anxiety disorder 3. Marijuana use disorder in partial remission Current Diagnoses:: F31.81 1. Bipolar 2 disorder 2. Generalized anxiety disorder 3. Marijuana use disorder in partial remission Patient Status Patient's Response to Treatment:: Pt has responded well to treatment as shown by consistent attendance, engagement in individual counseling, and showing increased engagement in group sessions. Pt is more often a passive participant in group sessions, but starting to provide contributions more often. Pt does struggle with consistent follow through on homework from individual sessions. Status of Current Problems and Symptoms: Pt reported continued mild to moderate anxiety and mild depression. Pt noting recent spike in anxiety after making decision to move to [place] within the next 6-7 months. 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 However, has some emotions connected to selling the land. Pt anxious about telling his family about his eventual move out of state. Pt has been reporting decrease in depressed symptoms and decreased in avoidance. Per DSM 5 cross-cutting measure at review his overall symptoms have decreased by 42%. Progress Problem #1: Problem Name:: Mood instability Status of Goals:: Obj 1 - met, ongoing work encouraged. Pt able to identify healthy coping skills like opposite action, challenging negative/distorted thoughts, and engaging in activities he used to enjoy. Obj 2 - met, ongoing work encouraged. Per DSM 5 cross-cutting measure at review scores indicate a 75% decrease in depressed symptoms. Team Recommendations:: Team recommends continued focus on current goals and objectives to show consistent progress. Continued work on increasing utilization of coping and calming skills. Problem #2: Problem Name:: Anxiety Status of Goals:: obj 1 - partially met, ongoing work encouraged. Pt is able to identify calming skills like belly breathing, mindfulness, and grounding tools. Pt does struggle with consistent utilization of healthy coping skills. obj 2 - partially met. Per DSM 5 cross-cutting measure his anxiety has decreased by 38%. Team Recommendations:: Team recommends continued focus on current goals and objectives to show consistent progress. Continued work on increasing utilization of coping and calming skills.
--- NOTE | 2022-09-04 10:10 | BH.SGPN.GN ---
Behaviors/Verbalizations/Mental Status: [] Eye contact is good. Motor activity is appropriate. Appearance is casual. Speech is Appropriate. Mood is depressed. Affect is congruent. Thoughts are linear and logical. No evidence of psychosis. Client Response/Progress/Benefit: [] Limited participation in group discussions however did participate in group activities. Attentive during psychoeducation. Engaged during activity in which she identified which type of foods (i.e. carbs, sugar, salt, fast food, caffeine, etc) he seeks out when sad, tired, angry, rushed, anxious, etc. Pt was able to identify an unhealthy food cycle which included; need a quick lunch --> grab fast food ---> feel more tired and lethargic. Pt was able to identify the impact that certain foods have on his mental health which was beneficial. Will continue in IOP to prevent decompensation, increase healthy coping, and improve functioning to return to work. Narrative Note: []
--- NOTE | 2022-09-05 09:00 | BH.SGPN.GN ---
Behaviors/Verbalizations/Mental Status: [] Eye contact is good. Motor activity is appropriate. Appearance is casual. Speech is Appropriate. Mood is depressed. Affect is congruent. Thoughts are linear and logical. No evidence of psychosis. Reviewed daily check in sheet and no reports of suicidal ideations or intent. Client Response/Progress/Benefit: [] Pt participated when prompted. Attentive. Shared with the group that he was ?down? yesterday however was able to utilize internal and external coping skills which was beneficial. He elaborate on those skills. Notes that his was irritable yesterday which lead patient to rumination on reasons why and ultimately blames himself. He was able to identify that he was catastrophizing and mind reading which led to incorporating thought challenges to stop that thinking. Progress noted per pt report as he is able to incorporate skills during depressive episodes rather than isolate. Benefited from group support, encouragement, and feedback. Will continue in IOP to maintain safety, stabilize mood, and improve function to return to work Narrative Note: []
--- NOTE | 2022-09-05 10:15 | BH.SGPN.GN ---
Behaviors/Verbalizations/Mental Status: []Pt alert and oriented, neatly dressed and groomed. Eye contact good. Motor activity appropriate. Speech within normal limits. Affect constricted, mood anxious. Thoughts linear, logical, no signs of hallucinations or delusions. Client Response/Progress/Benefit: []Pt was an active participant during small group discussions. Attentive during psychoeducation on the six types of boundaries. Pt along with peers contributed to interactive discussion on defining what a boundary is and group identified challenges to setting boundaries. Pt discussed personal barriers of not feeling confident in assertive communication and fear of hurting others. Pt?s group also identified the benefits of boundary setting which included ?knowing what people respect you.? Pt contributed during his small group discussion. benefited from increased awareness and insight on the importance/benefit to setting health boundaries. Will continue IOP tx to promote mood stability, increase self-confidence, and further improve daily functioning. Narrative Note: []
--- NOTE | 2022-09-05 11:15 | BH.SGPN.GN ---
Behaviors/Verbalizations/Mental Status: []Pt alert and oriented, casually dressed and groomed. Eye contact good. Motor activity appropriate. Speech within normal limits. Affect congruent, mood depressed. Thoughts linear, logical, no signs of hallucinations or delusions. Client Response/Progress/Benefit: []Pt remained an active participant AEB providing contributions to group discussion, listening attentively to others, and engagement in small group discussion. Pt attentive during psychoeducation on the different boundary styles. Pt did well to work within the small group on identifying strategies for establishing and maintaining healthy boundaries. Pt identified wanting to work on improving his emotional boundaries by taking steps to more consistently communicate his emotions with friends and family. Appeared to benefit from increased awareness of boundary styles and strategies to improve setting boundaries. Will continue IOP tx to increase consistent use of healthy coping skills, challenge distortions and improve communication, and prevent decompensation. Narrative Note: []
--- NOTE | 2022-09-08 09:00 | BH.SGPN.GN ---
Behaviors/Verbalizations/Mental Status: []Pt alert and oriented, casually dressed and groomed. Eye contact good. Motor activity restless. Speech within normal limits. Affect constricted, mood dysthymic. Thoughts linear, logical, no signs of hallucinations or delusions. Reviewed pt?s symptom tracker, no reported suicidal ideation, denies plan, or active intent. Client Response/Progress/Benefit: [] Pt responded well to session, open to contributing with group and engaged. Per symptom tracker pt reports a 3/5 for depression and 2/5 for anxiety. Patient stated one of his stressors has been needing to have conversation with his family about moving to [place] which he did talk to them over the weekend. Patient stated the conversation went well and his parents and family were supportive of his move. However he reported he was frustrated that he does not feel better because he thought after having the conversation it would release a lot of his stress and anxiety but despite having the conversation with his family he still feels a lot of different emotions about having to move. Client receptive to therapist helping him challenge his expectations that 1 conversation would make him feel better given there is other emotions attached to selling his property. Client reported additional mental positive was having a positive conversation with his . Stated he has been using grounding and opposite action as healthy coping skills. Identified feeling little disconnected today. Seemed to benefit from support from peers. Pt will continue IOP tx to continue working on challenging negative and distorted thought patterns, continue use of healthy calming and coping skills, and prevent decompensation.
--- NOTE | 2022-09-08 10:10 | BH.SGPN.GN ---
Behaviors/Verbalizations/Mental Status: [] Eye contact is good. Motor activity is appropriate. Appearance is casual. Speech is Appropriate. Mood is depressed. Affect is flat. Thoughts are linear and logical. No evidence of psychosis. Client Response/Progress/Benefit: [] Attentive during group discussions and psychoeducation on SMART goals. Participated in experiential activity. Attentive during interactive discussion on the benefits of setting goals which group identified as; increase self-worth, increase confidence, can motivate us, can lead to personal growth, and can give one a sense of purpose. Attentive during interactive discussion on possible obstacles to obtaining goals which involved; little patience, low motivation, feeling burned out, setting unrealistic goals, limited time, stressors, other responsibilities, negative self-talk, doubt, cognitive distortions, lack of resources, and lack of focus. Benefited from increased understanding of benefits of goals, obstacles to obtaining goals, and methods for setting appropriate goals (SMART goals). Will continue in IOP to prevent decompensation, maintain safety, increase healthy coping, and improve functioning to return to work. Narrative Note: []
--- NOTE | 2022-09-08 13:39 | BH.MDN ---
Multi-Disciplinary Note Note 45-min Individual: Time Started:: 11:20 Date: 09/08/22 Purpose of session/treatment goals addressed:: Purpose session was to address goals 1 and 2 from [facility]. Eye Contact:: Fair Motor Activity:: Appropriate Appearance:: Casual Mood:: Depressed Affect:: Constricted Thoughts:: Linear, Logical and No evidence of hallucinations/delusions noted Staff Interventions:: thought challenging, motivational interviewing, CBT techniques, strengths perspective and other (Reviewed behavioral activation and daily goals) Client Response:: Client reported he has been feeling depressed since last week. Client reported he has noticed starting to feel emotional again several times a day for no apparent reason. Reported his motivation level has decreased and has stopped following through with the daily goals he had been doing from previous sessions. Client reported continued struggle with concentration and starting to feel more apathetic. Client states sleep is okay and energy is about the same. Client reported he did follow through with his goal over the weekend of telling his parents about moving to [place] with his . Client reported overall his family was really supportive. Client stated he thought he would feel a lot better after telling his family that he was moving but did not have the amount of relief he expected. Client able to note that he has decrease in anxiety since telling his family but is still feeling low. Client reported he has been struggling with having increased negative thinking about himself. 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 Client stated he is worried his marriage will not work due to continued conflict which makes him more anxious about potentially moving to [place]. With assistance from therapist client able to recognize he is taking blame for all of the struggles in the relationship which she can realize is not responsible for everything. Client reported they are going to start couple's therapy next month so he is hopeful that things can improve with help from a therapist. Client receptive to plan of getting back to doing his daily goals and will start keeping a thought log to increase awareness and start practicing challenging thoughts. Risks/Concerns:: Denies active suicidal ideation, plan, and intention. Progress Toward Goals/Plan:: Recent decompensation in symptoms as evidenced by client reporting increased depressed feelings with apathy, crying spells, low energy, low motivation, poor concentration and increased negative thinking. Client has been recent psychosocial stressor of deciding to move with his to [place]. Client recognizes his is not happy in [place] and she is starting to struggle and made a decision she is moving to [place] with or without him. 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 Client also reporting anxiety about his relationship due to feeling more disconnected with each other and increased arguments. Client will be starting couples therapy next month and is hopeful that it can be helpful before they choose to move to a different state. Client has not been following through with his daily goals which had been very helpful to him a few weeks ago. Client agreeable to get back to find daily goals for himself and engage in behavior activation. Client to continue IOP to improve mood stability, challenge negative thinking, and prevent decompensation. Time Stopped:: 12:05
--- NOTE | 2022-09-10 09:01 | BH.SGPN.GN ---
Behaviors/Verbalizations/Mental Status: [] Eye contact is good. Motor activity is appropriate. Appearance is casual. Speech is Appropriate. Mood is dysthymic. Affect is constricted. Thoughts are linear and logical. No evidence of psychosis. Reviewed daily check in sheet and reports a 1/5, with 5 being severe, for suicidal ideation, and a 0/5 for suicidal intention. This is below pt's baseline. Does not present as imminent risk for harm to self or others. Client Response/Progress/Benefit: [] Pt participated when prompted. Attentive. Daily symptom tracker notes 2/5 for depression and 2/5 for anxiety. Pt reported mental health positive as working out for two days in a row. 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 Pt stated using opposite action has been helpful in improving his mood. Pt reported current stressor as potential move out of state. Seemed to benefit from support from peers. Will continue in IOP to increase consistent use of healthy coping, challenge negative thinking, and prevent decompensation.
--- NOTE | 2022-09-10 10:10 | BH.SGPN.GN ---
Behaviors/Verbalizations/Mental Status: []Client alert and oriented, casually dressed and groomed. Eye contact good. Motor activity appropriate. Speech within normal limits. Affect congruent, mood depressed and anxious. Thoughts linear, logical, no signs of hallucinations or delusions. Client Response/Progress/Benefit: []Pt engaged in session AEB listening attentively to others and providing insight to group discussion. Pt engaged in activity, able to connect how it can be uncomfortable and difficult to accept when things are out of one?s own control. Pt worked with group to identify what things in life can be hard to accept. Group identified things hard to accept as: of a loved one, body image, loss of relationship, mental health diagnosis, other?s behaviors, and past decisions. Pt worked on identifying what personal things are hard to accept for themself, sharing struggling with his mental health dx, needing medications, and planning to move are things pt struggles with accepting. Pt seemed to benefit from increased awareness of importance of acceptance. Pt to continue IOP to improve mood stability, increase application of distress tolerance skills, and prevent decompensation. Narrative Note: []
--- NOTE | 2022-09-10 11:10 | BH.SGPN.GN ---
Behaviors/Verbalizations/Mental Status: []Pt alert and oriented, neatly dressed and groomed. Eye contact good. Motor activity appropriate. Speech within normal limits. Affect congruent, mood anxious. Thoughts linear, logical, no signs of hallucinations or delusions. Client Response/Progress/Benefit: []Pt responded well to session AEB taking notes and contributing to discussion throughout. Pt engaged as group continued discussion on acceptance and the mental health benefits of practicing acceptance. Pt and peers identified what makes acceptance challenging and pt completed a self-reflection exercise on what is hard to accept in pt's life. Pt identified struggling to accept that ?I'm moving away from my family and selling my property.? Group identified strategies to increase acceptance and pt shared wanting to focus on looking at the chatman and reminding himself that there are positives with the negatives. Pt appeared to benefit from gaining insight and learning strategies to increase acceptance. Pt will continue IOP tx to promote mood stability, continue? to combat distortions, and further increase daily functioning. Narrative Note: []
--- NOTE | 2022-09-12 09:05 | BH.SGPN.GN ---
Behaviors/Verbalizations/Mental Status: [] Eye contact is good. Motor activity is appropriate. Appearance is casual. Speech is Appropriate. Mood is depressed. Affect is congruent. Thoughts are linear and logical. No evidence of psychosis. Reviewed daily check in sheet and no reports of suicidal ideations or intent. Client Response/Progress/Benefit: [] Pt participated when prompted. Attentive. Daily symptom tracker notes 2/5 for depression and anxiety. Emotion for today is hopeful. Shared that he had was feeling low yesterday and utilized skills. He has been consistently recognizing his depression early and implementing thought challenging, nature, opposite-action, and distraction to help minimize its impact on his functioning. Increased confidence in his ability to manage his thoughts and emotions. He shared upcoming stressors revolving around his move and returning to work. Benefited from group support, encourgment, and feedback. Progress noted per pt report. Will continue in IOP to maintain gains, increase healthy coping, and improve functioning to return to work. Narrative Note: []
--- NOTE | 2022-09-12 10:03 | BH.SGPN.GN ---
Behaviors/Verbalizations/Mental Status: [] Client alert and oriented, neatly dressed and groomed. Eye contact good. Motor activity appropriate. Speech within normal limits. Affect full, mood dysthymic. Thoughts linear, logical, no signs of hallucinations or delusions Client Response/Progress/Benefit: [] Client was an active participant in group discussion and experiential activity. Attentive during psychoeducation on resilience. Participated in interactive discussion with peers on the definition of resilience and where it comes from. Group identified that resiliency can be impacted by; past experiences, physical and mental health status, and supports. Able to relate experiential activity of group juggle to topics of resilience. Worked well with peers in small group in which they identified factors that contribute to resilience. Benefited from increased awareness of resilience and the factors that contribute to building resilience. Will continue in IOP to increase overall functioning and increase emotional regulation skills. Narrative Note: []
--- NOTE | 2022-09-12 11:13 | BH.SGPN.GN ---
Behaviors/Verbalizations/Mental Status: [] Client alert and oriented, neatly dressed and groomed. Eye contact good. Motor activity appropriate. Speech within normal limits. Affect full, mood dysthymic. Thoughts linear, logical, no signs of hallucinations or delusions Client Response/Progress/Benefit: [] Client responded well to session AEB completing the resilience worksheet provided. Client actively participated in the discussion and worked cooperatively with group to identify strategies to enhance each of the components discussed. Client reports belief they already use resilience trait of ?moving towards goals? Client discussed that they could work on accepting change as a part of living. Client seemed to benefit from discussing strategies for improving personal resilience and identifying resilience traits client already possesses. Will continue IOP tx to increase self care and increase overall functioning. Narrative Note: []
--- NOTE | 2022-09-15 09:00 | BH.SGPN.GN ---
Behaviors/Verbalizations/Mental Status: [] Eye contact is good. Motor activity is appropriate. Appearance is casual. Speech is Appropriate. Mood is euthymic. Affect is full. Thoughts are linear and logical. No evidence of psychosis. Reviewed daily check in sheet and no reports of suicidal ideations or intent. Client Response/Progress/Benefit: [] Pt participated when prompted. Attentive. Daily symptom tracker notes 2/5 for depression and anxiety. Emotion for today is tired. Shared mental health wins which involved improved communication with over the weekend. According to pt they have great conversations about upcoming changes and possible stressors. In the past pt reports this would have caused significant anxiety and depression and ultimately would have led to isolation and anhedonia, however this did not occur. He continues to utilize coping skills and thought reframing/challenging. Also reports decreased isolation and avoidance as he reached out to a friend to set up a social event. Progress noted per pt report with decreased depression and isolation. Benefited from group support, encouragement, and feedback. Will continue in IOP to maintain safety, stabilize mood, and improve functioning to return to work. Narrative Note: []
--- NOTE | 2022-09-15 10:15 | BH.SGPN.GN ---
Behaviors/Verbalizations/Mental Status: []Pt alert and oriented, neatly dressed and groomed. Eye contact good. Motor activity appropriate. Speech within normal limits. Affect congruent, mood calm. Thoughts linear, logical, no signs of hallucinations or delusions. Client Response/Progress/Benefit: [] Pt was an active participant in group discussions and activities. Attentive during psychoeducation. Pt engaged during interactive discussion in which the group defined self-care and discussed its benefits. ?Worked with peers in a small group to identify myths related to self-care which included; Self-care means you are not productive, you have to earn self-care, and it is selfish. Pt participated in small groups where they worked to bust these self-care myths. Benefited from increased awareness of self-care, its benefits, and the consequences of not utilizing self-care strategies. Pt shared he has struggled with self-care in the past because he does not want to upset others. Will continue IOP tx to promote mood stability, increase assertive communication skills, and further reduce depressive symptoms. Narrative Note: []
--- NOTE | 2022-09-15 11:15 | BH.SGPN.GN ---
Behaviors/Verbalizations/Mental Status: []Pt alert and oriented, neatly dressed and groomed. Eye contact good. Motor activity appropriate. Speech within normal limits. Affect congruent, mood euthymic. Thoughts linear, logical, no signs of hallucinations or delusions. Client Response/Progress/Benefit: [] Pt engaged participant AEB completing self-assessment worksheet and providing input throughout discussion. Participated in group discussion on the various areas of self-care. Pt completed worksheet identifying current self-care practices and what self-care activities pt wants to start using. Pt selected physical self-care to begin practicing more consistently. Pt plans to do this by continuing with his regular workouts and eating healthier. Appeared to benefit from completing the self-care evaluation and gaining insights into current self-care practices, as well as identifying areas in which pt would like to improve upon.? Pt will continue IOP tx to promote gains, combat distortions, and increase ability to manage ongoing stressors. Narrative Note: []
== END 2022-09-15 23:59 ==
LOC: BHIOP 07:19
PROVIDERS: PCP Nurse Practitioner Family; Referring Provider Psychiatry & Neurology Psychiatry; Visit Provider Psychiatry & Neurology Psychiatry
DX: F31.81 Bipolar II disorder (principal); F41.1 Generalized anxiety disorder; F12.91 Cannabis use, unspecified, in remission
CPT/HCPCS: S9480; 90834; 90837; 90853

== ENCOUNTER → 2022-08-18 | Outpatient (CLI) | payer OTHER, SELFPAY ==
[2022-08-18 09:33] LABS: Albumin, Serum 4.1 g/dL (3.2-5.0); BUN 14 mg/dL (7-18); BUN/Creat Ratio 14.6 RATIO (10-20); Calcium,Total 8.9 mg/dL (8.5-10.1); Chloride 108 mmol/L (98-107); Creatinine, Serum 0.96 mg/dL (0.70-1.30); EST Glomerular Filtration Rate 95 mL/min (>60); Est Glom Filt Rate - Afr Amer 115 mL/min (>60); Glucose 97 mg/dL (74-106); Phosphorus 2.8 mg/dL (2.5-4.9); Potassium 4.3 mmol/L (3.5-5.1); Sodium Level 137 mmol/L (136-145); Thyroid Stim Hormone (TSH) 3.62 uIU/mL (0.358-3.74)
== END | disposition home or self-care (01) ==
LOC: LAB 08:12
PROVIDERS: PCP Nurse Practitioner Family; Referring Provider Psychiatry & Neurology Psychiatry; Visit Provider Psychiatry & Neurology Psychiatry
DX: Z79.899 Other long term (current) drug therapy (principal)
CPT/HCPCS: 36415; 80069; 80178; 84443

== ENCOUNTER → 2022-09-08 | Outpatient (CLI) | payer OTHER, SELFPAY ==
[2022-09-08 09:38] LABS: Albumin, Serum 4.3 g/dL (3.2-5.0); BUN 12 mg/dL (7-18); BUN/Creat Ratio 11.2 RATIO (10-20); Calcium,Total 9.2 mg/dL (8.5-10.1); Chloride 108 mmol/L (98-107); Creatinine, Serum 1.07 mg/dL (0.70-1.30); EST Glomerular Filtration Rate 84 mL/min (>60); Est Glom Filt Rate - Afr Amer 101 mL/min (>60); Glucose 106 mg/dL (74-106); Phosphorus 2.5 mg/dL (2.5-4.9); Potassium 4.4 mmol/L (3.5-5.1); Sodium Level 140 mmol/L (136-145)
== END | disposition home or self-care (01) ==
PROVIDERS: PCP Nurse Practitioner Family; Referring Provider Psychiatry & Neurology Psychiatry; Visit Provider Psychiatry & Neurology Psychiatry
DX: Z79.899 Other long term (current) drug therapy (principal)
CPT/HCPCS: 36415; 80069; 80178

== ENCOUNTER 2022-09-16 07:16 | Outpatient (RCR) | payer OTHER, SELFPAY ==
[2022-09-16 00:40] VITALS: BP 131/78; PULSE 84
--- NOTE | 2022-09-17 10:10 | BH.SGPN.GN ---
Behaviors/Verbalizations/Mental Status: [] Eye contact is fair. Motor activity is appropriate. Appearance is casual. Speech is Appropriate. Mood is dysthymic. Affect is constricted. Thoughts are linear and logical. No evidence of psychosis or hallucinations. Client Response/Progress/Benefit: [] Pt was an active participant in group discussion and activity. Attentive during psychoeducation. Along with peers was able to identify barriers to taking action on her mental health which included: fear of failure, the unknown, change, one's environment, past negative experiences, being passive, and fear of vulnerability. Identified several symptoms and stressors that he feels are holding him back from progress such as negative self-talk, fear of failure in marriage, and fear of failure in marriage. Benefited from increased self-awareness of obstacles. Will continue in IOP to increase consistent use of healthy coping skills, challenge distorted thoughts, and prevent decompensation.
--- NOTE | 2022-09-17 10:58 | PCM.BH.PN_ITS ---
Progress Note Progress Note: History of Present Illness/Interim History: The patient is a 36-year-old male with a history of bipolar depression, and anxiety who is seen in follow-up at the [facility] behavioral health IOP program. I last saw the patient 3 weeks ago and at that time the lithium carbonate dose was increased to 900 mg total daily. The patient has taken this for over 3 weeks now and he feels he is much better and much less depressed than before. He is isolating himself less and is able to use some of the skills he has learned in the program. He is having crying episodes less than once a week now and has only occasional down days. He feels he is able to communicate better with his and their marriage is doing somewhat better also. They have made plans to move to [place] and he is okay with this decision. He is still sleeping about 6 hours a night. He does still admits to passive thoughts of but these are now less than once a week. He denies passive or active suicidal ideation, plan for suicide, homicidal ideation, hallucinations, delusions or symptoms of jeremy. He remains sober still off marijuana for over 6 months. He obtained his lithium level on September 08 and it was increased to 0.5 mmol/L which was increased from before. His renal panel and TSH remain within normal limits. Current Psychiatric Medications: [] Adrian carbonate ER 600 mg p.o. at bedtime and 300 mg p.o. every morning for a total dose of 900 mg daily. Abilify 2 mg p.o. daily (x5 weeks now). Mental Status Examination: [] The patient is a 54-year-old male who is normal or fit for stated age and is casually dressed and groomed with good hygiene. He has no SOAP psychomotor agitation or retardation and is ambulatory with a normal gait. Eye contact is good and speech is normal rate and rhythm and fluent with no pressure. Mood is depressed and anxious. Affect is mildly constricted. Thought process is goal-directed and organized. Thought content: There is evidence of passive thoughts of about once a week. There is no evidence of suicidal ideation, plan for suicide, homicidal ideation, hallucinations, delusions or symptoms of jeremy. Reality testing is intact. Judgment is good. Insight is fair and improving. Impulsivity is moderate. Diagnoses: [] 1. Bipolar 2 disorder (currently depressed) 2. Generalized anxiety disorder 3. Marijuana use disorder in full remission 4. Primary support, work and financial issues Plan: [] The patient will continue the IOP program as the structure, support, education and group therapy will hopefully prevent worsening of the patient's symptoms and continue to allow him to improve. He felt safe during the interview and if it anytime he does not feel safe he agrees to let us know or go to the emergency room. The risk, options, possible complications and side effects of the medications were again discussed with the patient and he understands and accepts these. The lithium dose will be unchanged and will be left at the current dose. He understands he will need to get lithium blood work in about 3 months and then every 6 months as long as the dose does not change and he does not have any symptoms of side effects. He agrees to increase his Abilify to 5 mg p.o. daily to help with his depression and anxiety. Prescription is sent in for this. In addition he needed a refill on his lithium so refills were sent in for his lithium prescription also. I will see him in follow-up while he is in the IOP program and he will continue to follow-up with his outpatient providers.
--- NOTE | 2022-09-17 11:10 | BH.SGPN.GN ---
Behaviors/Verbalizations/Mental Status: []Pt alert and oriented, neatly dressed and groomed. Eye contact good. Motor activity appropriate. Speech within normal limits. Affect congruent, mood depressed. Thoughts linear, logical, no signs of hallucinations or delusions. Client Response/Progress/Benefit: []Pt responded well to session, taking notes and participating in worksheet discussion. Pt connected with the zones of action/change and that making sustainable change comes from stepping out of one?s comfort zone into the learning zone. Pt set a goal to gain control over negative self-talk. Pt reported plans to challenge self to fill out a thought log at least two times a week. Pt identified support pt will need as a list of positive affirmations, a thought log, and exercising. ?Appeared to benefit from identifying a small goal to benefit mental health. Will continue IOP tx to promote mood stability, reduce negative thinking patterns, and improve daily functioning. Narrative Note: []
--- NOTE | 2022-09-19 09:05 | BH.SGPN.GN ---
Behaviors/Verbalizations/Mental Status: [] Eye contact is good. Motor activity is appropriate. Appearance is casual. Speech is Appropriate. Mood is anxious. Affect is congruent. Thoughts are linear and logical. No evidence of psychosis. Reviewed daily check in sheet and no reports of suicidal thoughts. Client Response/Progress/Benefit: [] participated when prompted. Attentive. Daily symptom tracker notes 2/5 for anxiety and 1/5 for depression. Emotion is ?content but anxious?. Shared that he utilize skills to regulate his anxiety. Identified increased anxiety and implement distraction, walked in nature, and then sat on a rock while reframing and challenging negative automatic thoughts. Increased socialization as he has reached out to friends rather than isolate. Plans this weekend. Progress noted per pt report as he is showing that he can consistently regulate his mood. Benefited from group support, encouragement, and feedback. Will continuing in IOP to prevent decompensation, increase healthy coping, and to improve functioning to return to work Narrative Note: []
--- NOTE | 2022-09-19 10:15 | BH.SGPN.GN ---
Behaviors/Verbalizations/Mental Status: []Pt alert and oriented, neatly dressed and groomed. Eye contact good. Motor activity appropriate. Speech within normal limits. Affect constricted, mood down. Thoughts linear, logical, no signs of hallucinations or delusions. Client Response/Progress/Benefit: []Pt was an active?participant in small group discussion. Pt?s group worked together to identify benefits of healthy relationships which included companionship and emotional support. Group identified factors that lead to unhealthy relationships. Pt?s personal factors included fear of setting boundaries and negative self-talk. Actively participated in group experiential activity and expressed ideas to group. Benefited from increased insight and awareness of benefits of healthy relationships and factors that contribute to unhealthy relationships. Will continue IOP tx to promote mood stability, increase cognitive restructuring skills, and promote gains made in behavioral activation. ? Narrative Note: []
--- NOTE | 2022-09-19 17:31 | BH.MDN_ITS ---
Multi-Disciplinary Note Note 45-min Individual: Time Started:: 10:30 Date: 09/19/22 Purpose of session/treatment goals addressed:: Purpose of session was to address goals 1 and 2 from MTP. Eye Contact:: Good Motor Activity:: Appropriate Appearance:: Casual Speech:: Appropriate Mood:: Anxious and Dysthymic Affect:: Congruent Thoughts:: Linear, Logical and No evidence of hallucinations/delusions noted Staff Interventions:: thought challenging, CBT techniques, mindfulness skills, strengths perspective and other (return to work plan) Client Response:: client reported doing better today, compared to yesterday. Client stated he had couples counseling on Thursday, which he thought had gone well. However, client reported yesterday morning his was very angry and seemed to be upset with how therapy went. Client stated this negative morning interaction led him to initially spiral about the status of their marriage and worried she was going to ask for a divorce. 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 Client stated there were times throughout the day that he found himself spiraling, but most of the time was able to distract himself and not stay stuck for too long. Client reported later in the evening his apologized for her behavior and agreed to continue going to couples therapy. Client stated he is doing better this morning and has been trying to challenge his distortions as they arise. Client reported he did follow through with homework of starting to identify return to work plan. Client stated things that would be helpful when he returns to work includes: getting to work by 9am, making a priority list for the day, taking a lunch break, getting outside at least 2x a day, completing paperwork on time, and not leaving until 4pm each day. Client agreed it could be helpful to set a timer every 90 minutes to check- in with himself throughout the work day to make sure his mind isn't ruminating. Client reviewed plans he has for the weekend. Discussed strategies to help him separate his own emotions from when his is in a down mood. Risks/Concerns:: Denies suicidal ideation, plan or intention to date. Progress Toward Goals/Plan:: Progress noted with client showing increased awareness of his negative thought patterns with improved ability to challenge negative/distorted thoughts. Client often will have negative thoughts about himself if his is in a bad mood. He will personalize her feelings and think he did something wrong. Client starting to do better with challenging negative thoughts. 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 Client reported feeling better about going back to work. Client to continue IOP to help with transition back to work, increase healthy coping, and prevent decompensation. Time Stopped:: 11:10
--- NOTE | 2022-09-22 09:01 | BH.SGPN.GN ---
Behaviors/Verbalizations/Mental Status: []Pt alert and oriented, casually dressed and groomed. Eye contact fair to good. Motor activity appropriate. Speech within normal limits. Affect congruent, mood dysthymic. Thoughts linear, logical, no signs of hallucinations or delusions. Reviewed pt?s symptom tracker, no suicidal ideation reported, denies plan, or active intent as of 09/22/22. Client Response/Progress/Benefit: []Pt responded well to session, open to processing with group and engaged. Pt reports feeling down this morning. Shared this may be related to going a few days without medication as his prescription refill had not been completed in time. Able to identify several wins from the weekend such as going out with his family for his birthday and making time for self-care. Described going for a hike Thursday as a way to continue to be active and practice independent self-care. Pt appeared to benefit from supportive feedback of the group, as well as reflecting on mental health wins. Pt will continue IOP tx to promote mood stability, improve distress tolerance, and continue to improve functioning. Narrative Note: []
--- NOTE | 2022-09-22 10:15 | BH.SGPN.GN ---
Behaviors/Verbalizations/Mental Status: []Eye contact is fair. Motor activity is appropriate. Appearance is casual. Speech is Appropriate. Mood is anxious and dysthymic. Affect is constricted. Thoughts are linear and logical. No evidence of psychosis. Client Response/Progress/Benefit: []Pt participated during the group discussion. Attentive during psychoeducation and actively engaged during experiential activity. Participated during interactive discussion on aspects of fixed mindset. Group identified several aspects of fixed mindset which include: inflexible, belief that one cannot grow, absolute thinking, and all of one's skills, traits, and behaviors can't change. Group identified personal examples of fixed thinking in which pt shared personal fixed thoughts as: I'm not good at interviewing for jobs and I'm not enough for my . Benefited from increased understanding of personal fixed mindsets and how they can impact mental health. Will continue in IOP to increase confidence, continue use of healthy coping, improve thought patterns, and prevent decompensation.
--- NOTE | 2022-09-22 11:15 | BH.SGPN.GN ---
Behaviors/Verbalizations/Mental Status: []Pt alert and oriented, neatly dressed and groomed. Eye contact good. Motor activity appropriate. Speech within normal limits. Affect congruent, mood euthymic and anxious. Thoughts linear, logical, no signs of hallucinations or delusions. Client Response/Progress/Benefit: []Pt was an active participant during activity and discussion AEB providing some input, connecting with peers, as well as taking notes throughout. Pt did well to engage as group worked on identifying characteristics and benefits of adopting a growth mindset. Worked with fellow participants in reframing the example fixed thoughts into growth mindset thoughts. Pt worked on changing own fixed thought of ?I?m not good at interviewing for jobs? to growth thought of ?I?ve gained a lot of experience since the last time I interviewed.? Benefitted from discussing benefits of growth mindset and brainstorming strategies for prompting growth-mindset. Pt appeared to benefit from working in small groups to challenge own thoughts and help peers. Pt will continue IOP tx to reinforce healthy coping skills and improve mood stability. ? Narrative Note: []
--- NOTE | 2022-09-24 10:15 | BH.SGPN.GN ---
Behaviors/Verbalizations/Mental Status: []Pt alert and oriented, neatly dressed and groomed. Eye contact good. Motor activity appropriate. Speech within normal limits. Affect congruent, mood anxious. Thoughts linear, logical, no signs of hallucinations or delusions. Client Response/Progress/Benefit: [] Pt receptive to session AEB contributing to discussion, as well listening attentively to others, and taking notes. Worked with group to brainstorm the positive and negative aspects of stress on physical and mental health. Group did well to identify the benefits of stress as well as the impact of distress on performance, relationships, and mental health. 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 ?Pt seemed to benefit from increased awareness of current stressors and impact stress has on mental health. Recommended to continue IOP tx for one more session to further improve mood stability and reinforce healthy coping skills. ? Narrative Note: []
--- NOTE | 2022-09-24 11:15 | BH.SGPN.GN ---
Behaviors/Verbalizations/Mental Status: [] Eye contact is good. Motor activity is appropriate. Appearance is casual. Speech is Appropriate. Mood is anxious and content. Affect is congruent. Thoughts are linear and logical. No evidence of psychosis. Client Response/Progress/Benefit: []Pt was an active participant in group discussions and experiential activity. Attentive during psychoeducation on the 4 A's (Avoid, adapt, alter, accept) of coping with stress as well as strategies to identify stressors in which one has no control, little control, or a great deal of control over. 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 Was able to identify the connection between the experimental activity and utilization of stress management skills. Benefited from increased awareness of stress management strategies. Will continue in IOP to maintain progress, prevent decompensation, and to increase healthy coping skill application. Narrative Note: []
--- NOTE | 2022-09-24 11:42 | BH.MDN ---
Multi-Disciplinary Note Note 45-min Individual: Time Started:: 09:02 Date: 09/24/22 Purpose of session/treatment goals addressed:: Purpose of session was to address goals 1 and 2. Eye Contact:: Good Motor Activity:: Appropriate Appearance:: Casual Speech:: Appropriate Mood:: Anxious and Dysthymic Affect:: Congruent Thoughts:: Linear, Logical and No evidence of hallucinations/delusions noted Staff Interventions:: thought challenging, CBT techniques, discharge planning, strengths perspective and goal setting Client Response:: Client reported he had a really positive weekend. Client stated he went out to dinner in [place] with his then to the [email or web address] together. Client reported they had a really good time together. Client reported on Thursday he went to the fair with his dad and had a good time. Client stated Thursday he was able to get things done around his house. Client reported since Thursday his mood has declined and his anxiety has worsened. Client reported he believes this is connected to going back to work full-time next week. Client stated he also has been struggling with getting lost in ruminations about his marriage, moving, selling their land, and work. Therapist helped client challenge some of his anxious/distorted thoughts and client agreed it will be most helpful if he focuses on the situations that are within his control. 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 Client worked with therapist to identify list of current projects he could get done. Client identified goals for the week on when he wants the projects complete which will help give him a focus and decrease stress. Client stated he is feeling nervous about getting back to work, but does feel better now that he has a return to work plan created last week. Client reported he is able to see progress within himself compared to when he first started IOP. Client stated he is doing better with challenging negative thoughts and isn't personalizing situations as often. Client agreeable to think about to include on maintenance plan. Risks/Concerns:: Denies suicidal ideation, plan, or intention to date. future oriented. Progress Toward Goals/Plan:: Progress noted with client reporting decreased negative thoughts, decreased personalization, improved interactions with his , and able to be more present over the weekend. Client does note recent increase in down mood and anxiety, which he attributes to as returning to work next week. Client reported he thinks just getting through the door for this first day will be the most helpful. Client is able to note treatment progress since starting IOP. Client still struggling with mild depressed mood and anxious symptoms, however client reminding himself he has added stress in the last two weeks of his wanting to move to [place], having to sell 100 acres of land, and uncertainty of his marriage. Client is to continue IOP to help with transition back to work, continue use of skills, and prevent decompensation. Time Stopped:: 09:50
--- NOTE | 2022-09-26 10:10 | BH.SGPN.GN ---
Behaviors/Verbalizations/Mental Status: []Eye contact is good. Alert and oriented. Motor activity is appropriate. Appearance is casual. grooming is appropriate. Speech is Appropriate. Mood is anxious and euthymic. Affect is congruent. Thoughts are linear and logical. No evidence of psychosis or hallucinations. Client Response/Progress/Benefit: []Client was an active participate AEB providing some contributions, listening attentively to others, and taking notes throughout. The group identified the impact of emotions on communication such as change in tone, body language, shutting down, misperceiving the communication, and not being able to express oneself. During group activity, client identified feeling anxious, he did well to identify this, use deep breathing, and process with the group. Client benefited from session by gaining an increased understanding on the importance of managing emotions to improve daily functioning. Client will d/c from IOP tx given progress made overall and continue with individual outpatient counseling. Narrative Note: []
--- NOTE | 2022-09-26 11:10 | BH.SGPN.GN ---
Behaviors/Verbalizations/Mental Status: []Pt alert and oriented, casually dressed and groomed. Eye contact fair. Motor activity appropriate. Speech within normal limits. Affect congruent, mood anxious. Thoughts linear, logical, no signs of hallucinations or delusions. Client Response/Progress/Benefit: [] Pt engaged in session AEB Pt listening attentively to peers and providing input. Attentive during psychoeducation on 4 zones of regulation. Pt able to identify feelings and behaviors for each zone. Pt identified coping skills one can use to support self in each zone. Pt reports majority of the time he is in the blue zone. Reported skills can practice when needs to manage emotions in the blue zone include: setting goals, exercise, opposite action, and getting outside. Benefited from increased education on zones of regulation or stages of alertness for emotions and healthy coping skills to use for each zone. Pt has made progress since starting IOP and will discharge from IOP today. 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
--- NOTE | 2022-09-26 14:29 | BH.DS ---
Discharge Summary Demographics Date of Admission:: 08/11/22 Discharge Date: 09/26/22 Presenting Problems at Admission:: The patient is a 36-year-old male with a recent diagnosis of bipolar 2 disorder who was referred to the [facility] IOP program by his outpatient psychiatric provider. 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 He also is taking FMLA now in order to participate in the IOP program. 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 He has found this to be extremely stressful and he feels it has worsened his tendency to become depressed. In addition in the same year they bought farmland. 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 Reports spending 2-3 months in a hypomanic state then the rest of the year in a depressed state. He endorses sadness, worthlessness, hopelessness, guilt and anhedonia. He has 1-2 crying spells a day. He is anxious about his job and his marriage. Discharge Diagnoses:: 1. Bipolar 2 disorder F31.81 2. Generalized anxiety disorder 3. Marijuana use disorder in partial remission Reason for Discharge:: Client has shown significant treatment progress, improved daily functioning, improved skill use, and no longer meets criteria for IOP level of care. Treatment Progress During Treatment & Response: Per DSM 5 cross-cutting measure at discharge scores show a 63% reduction in depression, 63% reduction in anxiety, 100% reduction in thoughts of hurting self, and and overall 62% reduction in overall symptoms. Pt does continue to report mild depressive and anxious symptoms, but he attributes this to ongoing marital stress, potentially moving out of state, and returning back to work on Thursday. Pt can note improvement in mood stability, ability to manage his anxious symptoms better, increased awareness of distorted thoughts, and improved daily functioning. Pt responded well to treatment AEB consistent attendance, taking notes throughout group sessions, and engaging in individual therapy. Issues Still to be Addressed:: Could benefit from continued reinforcement of healthy coping skills, challenging distortions, assistance with returning back to work, and helping him manage anxious symptoms connected to psychosocial stressors. Discharge Recommendations/Instructions:: Pt has appointment with outpatient counselor Krystal next . Pt has appointment with Dr. Mayfield in a couple of months. Has refills for his current prescriptions. Discharge Handout
--- NOTE | 2022-09-26 15:07 | BH.MDN ---
Multi-Disciplinary Note Note 30-min Individual: Time Started:: 09:00 Date: 09/26/22 Time Stopped:: :30
== END 2022-09-26 12:06 | disposition home or self-care (01) ==
LOC: BHIOP 07:16
PROVIDERS: PCP Nurse Practitioner Family; Referring Provider Psychiatry & Neurology Psychiatry; Visit Provider Psychiatry & Neurology Psychiatry
DX: F31.81 Bipolar II disorder (principal); F41.1 Generalized anxiety disorder; F12.91 Cannabis use, unspecified, in remission
CPT/HCPCS: S9480; 90832; 90834; 90853

== ENCOUNTER 2024-08-06 13:25 | Emergency (ER) | payer OTHER, SELFPAY ==
[2024-08-06 13:29] VITALS: BP 131/72; PULSE 93; RESP 16; TEMP 36.9; O2SAT 98; BMI 30.2
--- NOTE | 2024-08-06 13:48 | EKG12_ITS ---
Test Reason : general Blood Pressure : */* mmHG Vent. Rate : 76 BPM Atrial Rate : 76 BPM P-R Int : 148 ms QRS Dur : 90 ms QT Int : 360 ms P-R-T Axes : 42 52 33 degrees QTcB Int : 405 ms Normal sinus rhythm Normal ECG Confirmed by Topher Jeffery ([id number]), online content editor JERICHO SOLANO ([id number]) on 08/09/2024 11:50:37 AM Referred By: Confirmed By: Topher Jeffery
--- NOTE | 2024-08-06 13:49 | EX.ED.DYSGE1 ---
HPI History of Present Illness Chief Complaint: General Illness Informant: patient Narrative Narrative: Presents here with mother for evaluation. History of anxiety and depression on Latuda followed by psychiatry. Has worsening anxiety depression symptoms for the last [address] Mayfield. Over the last few weeks has had ketamine intranasal treatment twice a week. States anxiety is worsening. Yesterday had dyspnea chest tightness and sweatiness that resolved. Today mild symptoms he took his as needed Ativan with improving symptoms. He is here with mother to rule out any medical issues. No family history of MIs at a young age. Denies tobacco. Denies recent travel surgery or immobilizations. No history of PE or DVT. Denies diabetes hypertension or hyperlipidemia. Currently asymptomatic. Prior similar symptoms: Yes PFSH PFSH Medical History ADHD Major depressive disorder Cannabis use disorder Bipolar 2 disorder Generalized anxiety disorder Home Medications ?Medication ?Instructions ?Recorded ?Last Taken ?Type hydroxyzine HCl 25 mg tablet 25 mg PO TID PRN anxiety #90 tabs 03/08/24 Unknown Rx doxepin 10 mg capsule 10 mg PO QHS PRN for insomnia #90 06/06/24 Unknown Rx caps lorazepam 1 mg tablet 1 mg PO QDAY PRN anxiety #15 tabs 06/06/24 Unknown Rx lurasidone 60 mg tablet 60 mg PO QPM #30 tabs 07/06/24 Unknown Rx Allergy/AdvReac Type Severity Reaction Status Date / Time No Known Allergies Allergy Verified 08/06/24 13:29 Social History Smoking Status: Never smoker substance use type: does not use ROS ROS ED Constitutional Constitutional ED: Denies chills, fever(s) or sweats ENT ENT ED: Denies sore throat Cardiovascular Cardiovascular: Reports chest pain; Denies leg edema, palpitations or racing heartbeat Respiratory/Chest Respiratory/Chest: Reports dyspnea; Denies cough or dyspnea on exertion Gastrointestinal Gastrointestinal: Denies abdominal pain, diarrhea, nausea or vomiting Genitourinary Genitourinary ED: Denies dysuria, hematuria or urinary frequency Musculoskeletal Musculoskeletal: Denies back pain, extremity pain or neck pain Integumentary Denies rash or wounds Neurologic Neurologic: Denies headache(s), paresthesias or weakness EXAM Physical Exam Const Vital Signs: 08/06/24 13:29 08/06/24 14:22 08/06/24 15:18 Temperature 98.5 F Temperature Source Oral Pulse Rate 93 78 Respiratory Rate 16 17 Respiratory Effort Normal Respiratory Pattern Normal Blood Pressure 131/72 H 108/70 Blood Pressure Mean 91 82 Pulse Ox 98 96 Oxygen Delivery Method Room Air Room Air 08/06/24 15:30 08/06/24 16:02 Temperature 98.5 F Temperature Source Pulse Rate 78 77 Respiratory Rate 16 16 Respiratory Effort Respiratory Pattern Blood Pressure 109/70 Blood Pressure Mean 83 Pulse Ox 97 97 Oxygen Delivery Method Positive well nourished and well developed General Appearance ED: well developed and NAD HEENT Reports moist mucous membranes normocephalic and atraumatic Eyes General Eye ED: Yes normal appearance of both eyes Neck full ROM Chest Wall Chest: Negative for tenderness Resp normal respiratory effort and normal air movement Effort and Inspection: symmetric chest movement; Negative for respiratory distress Cardio regular rate, regular rhythm and no murmurs Peripheral Pulses: pulses 2+ throughout GI normal to inspection, nondistended, normoactive bowel sounds and non-tender Palpation: Negative for guarding or rebound tenderness present Extremity normal to inspection General Extremety ED: Negative for edema or tenderness General Extremity: Negative for edema Neuro oriented x3 and no sensory deficits noted Sensorium / Orientation: awake and alert Skin no rashes or lesions noted and no wounds MDM MDM MDM Narrative Medical decision making narrative: Interventions / MDM: Differential diagnosis: Atypical chest pain Diagnosis considered but do not suspect: PE however PERC negative. ACS however EKG with no ischemic findings cardiac enzyme negative. My EKG interpretation: Sinus rate of 76, no ST or T wave changes. QTc 405. Imaging independently reviewed and interpreted by myself: 2 view chest x-ray: No acute process also read by radiology. External documents reviewed: N/A Test considered but not ordered:N/A ED course: Patient currently asymptomatic. Mother concerned for potential any medical causes of his symptoms. He had chest pain that is resolved he had shortness of breath however PERC criteria negative. Will check EKG cardiac labs 1 troponin will check TSH. Will reevaluate. Workup negative. Reassured on findings with patient and mother. Outpatient follow-up with his doctors. All questions were answered. Re-evaluation: stable Disposition discussed with patient/family/significant other: Patient and mother Case discussed with consulting clinician: N/A This note was generated with [employer]edda dictation software. It may contain incorrect words, spelling, and punctuation that were not noted in checking the note before signing. Lab Data Labs: Laboratory Results - last 24 hr 08/06/24 14:25 WBC 6.8 RBC 4.88 Hgb 14.8 Hct 42.3 MCV 86.7 MCH 30.3 MCHC 35.0 RDW Std Deviation 38.5 RDW Coeff of Lorrie 12.1 Plt Count 292 MPV 10.1 Immature Gran % (Auto) 0.100 Neut % (Auto) 71.1 H Lymph % (Auto) 20.3 [place] % (Auto) 7.5 Eos % (Auto) 0.7 Baso % (Auto) 0.3 Absolute Neuts (auto) 4.8 Absolute Lymphs (auto) 1.38 Nucleated RBC % 0 Sodium 140 Potassium 4.3 Chloride 105 Carbon Dioxide 22.7 Anion Gap 12 BUN 14 Creatinine 1.15 Estim Creat Clear Calc 109.30 Est GFR (MDRD) Non-Af 85 BUN/Creatinine Ratio 11.7 Glucose 109 H Calcium 9.1 Troponin T High Sens < 6 TSH 1.000 Radiography Diagnostic Testing: Clinical Impression(s) from Imaging Studies Chest X-Ray 08/06/24 14:10 IMPRESSION: No acute process. [facility] Discharge Plan Triage Chief Complaint: General Illness ED Provider: Orville Castillo Dx/Rx/DC Orders Clinical Impression: Anxiety, Chest pain Instructions: Anxiety Disorders Tx, ED Chest Pain, Uncertain Cause Prescriptions: No Action hydroxyzine HCl 25 mg tablet 25 mg PO TID PRN (Reason: anxiety) Qty: 90 0RF doxepin 10 mg capsule 10 mg PO QHS PRN (Reason: for insomnia) Qty: 90 1RF lorazepam 1 mg tablet 1 mg PO QDAY PRN (Reason: anxiety) Qty: 15 0RF lurasidone 60 mg tablet 60 mg PO QPM Qty: 30 2RF Rx Instructions: must administer with food (at least 350 calories) Primary Care Provider: Forrest Flores NP Referrals: Forrest Flores STERILISATION TECHNICIAN, STERILISATION TECHNICIAN-C [Primary Care Provider] - 3-5 Days Activity Restrictions/Additional Instructions: Chest x-ray negative. Cardiac workup negative heart enzymes. Your TSH normal. EKG normal. Follow-up with your doctors. Print Language: Irish Disposition Disposition: Home, Self Care Discharge Date/Time: 08/06/24 16:05
--- OUTSIDE RECORDS SUMMARY | 2024-08-06 13:55 | XMS RPT_ITS | CCD ---
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 Lockstitch Name Role Phone BARNEY CABRAL Unavailable Unavailable SANDRABARNEY SILVER Unavailable Unavailable Seese, Dedrick L Attending Unavailable [place]o ANIMAL WARDEN, Barney Rehman Primary Care Unav ailable Seese, Dedrick L Attending Unavailable [place] ANIMAL WARDEN, Barney Ori Primary Care Unav ailable Seese, Dedrick L Attending Unavailable [place] [facility] Seese, Dedrick L Attending Unavailable Sandra ANIMAL WARDEN, Barney Ori Primary Care Unav ailable Seese, Dedrick L Attending Unavailable Sandra [facility]IM[facility] WARD[facility], [facility] Unav ailable Seese, Dedrick L Attending Unavailable [place] ANIMAL WARDEN, [facility] [place] [facility] Unav ailable Seese, Dedrick L Attending Unavailable Sandra ANIMAL WARDEN, Barney Ori Primary Care Unav ailable Seese, Dedrick L Attending Unavailable [place] ANIMAL WARDEN, [facility] [place] [facility] Unav ailable Problems Active Problems Problem Classification Problem Date Documented Date Episodic/Chronic Attention-deficit, conduct, and disruptive behavior disorders (1 source) Attention-deficit hyperactivity disorder, unspecified type; Translations: [Attention-deficit hyperactivity disorder, unspecified type] Onset: 03-08-2024 Chronic Mood disorders (2 sources) Major depressive disorder, recurrent severe without psychotic features; Translations: [Major depressive disorder, single episode, unspecified] Onset: 06-06-2024 Chronic Past or Other Problems Problem Classification Problem Date Documented Date Episodic/Chronic Unclassified (4 sources) Encounter for screening for diabetes mellitus; Translations: [Encounter for screening for cardiovascular disorders] Onset: 11-06-2016 Episodic Results Test Name Value Interpretation Reference Range Facil ity MR/BMS.BPon 07-06-2024 MR/BMS.BP [facility] [address] [place] [address], [address] [place] [address] OFFICE VISIT Date of Service: 07/06/24 MR#: [id number] Acct: [id number] Name: TOPHER GONZALEZ Rep #: [id number] : 1985 Provider: Dr. Dedrick Buckner se, DO Age/Sex: 38/M Location: [facility] [place] Status: Signed Intake Vital Signs 06/06/24 07:34 07/06/24 07:39 Height 6 ft 6 ft Weight: 227 lb BMI 30.7 BP 118/75 112/74 Blood Pressure Location Lt brachial Lt brachial Position Sitting Sitting Respiration 18 16 Pulse 76 83 Pulse Source Monitor Monitor BP Intake Visit Reasons: 1 M FU Accompanied by: Self Allergies No Known Allergies Allergy (Verified 07/06/24 07:39) Medications ???Medication ???Instructions ???Recorded ???Confirmed ???Type hydroxyzine HCl 25 mg tablet 25 mg PO TID PRN anxiety #90 tabs 03/08/24 07/06/24 Rx doxepin 10 mg capsule 10 mg PO QHS PRN for insomnia #90 06/06/24 07/06/24 Rx caps lorazepam 1 mg tablet 1 mg PO QDAY PRN anxiety #15 tabs 06/06/24 07/06/24 Rx lurasidone 60 mg tablet 60 mg PO QPM #30 tabs 07/06/24 Rx PFSH Medical History ADHD Major depressive disorder Cannabis use disorder Bipolar 2 disorder Generalized anxiety disorder Social History Smoking Status: Never smoker substance use type: does not use HPI History of Present Illness History provided by: patient HPI: Topher Gonzalez is a 38 year old male who presents today for follow up evaluation. Reports that he thinks that Spravato was approved as of yesterday, but has not yet scheduled any appointments. Has been feeling somewhat similar to how he has nancy feeling. Mood is largely unchanged. Anxiety has been not as bad. Only used ativan about 3 times. Still feeling largely depressed. Still having passive thoughts of suicide without intent or plan. 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 Has been feeling fatigued. Sleep has been fair. Trouble getting to sleep but is able to stay asleep when he falls asleep. Review of Systems Constitutional Denies: fever(s), chills, change in weight or fatigue Eyes Denies: change in vision or blurry vision Ears, Nose, Mouth, Throat Denies: throat pain, neck pain or change in hearing Cardiovascular Denies: chest pain, palpitations or dyspnea Respiratory Denies: dyspnea, cough or wheezing Gastrointestinal Denies: abdominal pain, nausea, vomiting, diarrhea or constipation Genitourinary Denies: dysuria or urinary frequency Musculoskeletal Denies: back pain, neck pain, joint pain or muscle weakness Integumentary/Breast Denies: rash or new lesions Neurological Denies: headache(s), dizziness or confusion Endocrine Denies: fatigue or excessive sweating Hematologic/Lymphatic Denies: easy bruising or easy bleeding Allergic/Immunologic Denies: wheezing Exam Mental Status Exam - Psych Appearance casually dressed Attitude cooperative Activity/Motor Behavior MSE activity/motor behavior finding no adventitious movements Speech regular volume, regular prosody and slow Mood depressed Affect restricted Thought Process linear, logical and coherent Thought Content no delusions and no hallucinations Suicidal Ideation passive; Not active, No intent, No plans and No means Homicidal Ideation none Attention intact Concentration intact Sensorium/Orientation awake, alert and oriented x3 Memory/Cognition other (appropriate for stated age) Insight fair Judgement good Assessment Plan Assessment Plan (1) ADHD: Plan: - holding any treatment as we address mood symptoms (2) Major depressive disorder: Qualifiers: Active/Remission status: currently active Major depression episode severity: severe Major depression recurrence: recurrent Psychotic features: without psychotic features Qualified Code(s): F33.2 - Major depressive disorder, recurrent severe without psychotic features Plan: - Continue lurasidone 60 mg every day as increased during hospitalization ??? stpp lamotrigine secondary to limited clinical benefit -referred for spravato, should be starting in near future (3) Generalized anxiety disorder: Plan: - PRN lorazepam for short term anxiety - Patient was informed risks of benzo use including but not limited to sedation, fall risk and risk of cognitive problems including memory problems. Patient was also informed risks of abruptly stopping medication including seizure and delirium. Patient was informed about clinic's control substance policy which includes but not limited to random UDS, no early refills, no authorization for lost script or pills and not to use illicit substance and alcohol (more content not included)... [facility] MR/BMS.BPon 06-06-2024 MR/BMS.BP [facility] [address], [address] [place] [address] OFFICE VISIT Date of Service: 06/06/24 MR#: [id number] Acct: [id number] Name: TOPHER GONZALEZ Rep #: [id number] : 1985 Provider: Dr. Dedrick Buckner se, DO Age/Sex: 38/M Location: [facility] [place] Status: Signed Intake Vital Signs 05/05/24 07:01 06/06/24 07:34 Height 6 ft 6 ft BP 122/72 H 118/75 Blood Pressure Location Lt brachial Lt brachial Position Sitting Sitting Respiration 16 18 Pulse 77 76 Pulse Source Monitor Monitor BP Intake Visit Reasons: 1 M FU Accompanied by: Self Allergies No Known Allergies Allergy (Verified 06/06/24 07:34) Medications ???Medication ???Instructions ???Recorded ???Confirmed ???Type hydroxyzine HCl 25 mg tablet 25 mg PO TID PRN anxiety #90 tabs 03/08/24 06/06/24 Rx lamotrigine 100 mg tablet 100 mg PO QHS depressive disorder 05/05/24 06/06/24 Rx #30 tabs lurasidone 60 mg tablet 60 mg PO QPM #30 tabs 05/05/24 Rx doxepin 10 mg capsule 10 mg PO QHS PRN for insomnia #90 06/06/24 06/06/24 Rx caps lorazepam 1 mg tablet 1 mg PO QDAY PRN anxiety #15 tabs 06/06/24 06/06/24 Rx PFSH Medical History ADHD Major depressive disorder Cannabis use disorder Bipolar 2 disorder Generalized anxiety disorder Social History Smoking Status: Never smoker substance use type: does not use HPI History of Present Illness History provided by: patient HPI: Topher Gonzalez is a 38 year old male who presents today for follow up evaluation. Has not noticed any significant benefit with lamotrigine to this point. Has been feeling much more anxious at bedtime. Has been able to sleep once asleep, but does have hard time getting to sleep. Has been having a hard time to sit down and focus to complete things. 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 Appetite has been largely doing well. Still following with Krystal twice per week for therapy. Still considering doing Spravato. Has not been taking the hydroxyzine as he didn't find exceptionally beneficial. Does still feel depressed. Has had fletting thoughts of suicide. Review of Systems Constitutional Denies: fever(s), chills, change in weight or fatigue Eyes Denies: change in vision or blurry vision Ears, Nose, Mouth, Throat Denies: throat pain, neck pain or change in hearing Cardiovascular Denies: chest pain, palpitations or dyspnea Respiratory Denies: dyspnea, cough or wheezing Gastrointestinal Denies: abdominal pain, nausea, vomiting, diarrhea or constipation Genitourinary Denies: dysuria or urinary frequency Musculoskeletal Denies: back pain, neck pain, joint pain or muscle weakness Integumentary/Breast Denies: rash or new lesions Neurological Denies: headache(s), dizziness or confusion Endocrine Denies: fatigue or excessive sweating Hematologic/Lymphatic Denies: easy bruising or easy bleeding Allergic/Immunologic Denies: wheezing Exam Mental Status Exam - Psych Appearance casually dressed Attitude cooperative Activity/Motor Behavior MSE activity/motor behavior finding no adventitious movements Speech regular volume, regular prosody and slow Mood depressed and anxious Affect restricted Thought Process linear, logical and coherent Thought Content no delusions and no hallucinations Suicidal Ideation passive; Not active, No intent, No plans and No means Homicidal Ideation none Attention intact Concentration intact Sensorium/Orientation awake, alert and oriented x3 Memory/Cognition other (appropriate for stated age) Insight fair Judgement good Assessment Plan Assessment Plan (1) ADHD: Plan: - We will hold off Concerta secondary to ongoing mood symptoms (2) Major depressive disorder: Qualifiers: Major depression recurrence: recurrent Active/Remission status: currently active Major depression episode severity: severe Psychotic features: without psychotic features Qualified Code(s): F33.2 - Major depressive disorder, recurrent severe without psychotic features Plan: - Continue lurasidone 60 mg every day as increased during hospitalization ??? continue lamotrigine to 100 mg -referred for spravato (3) Generalized anxiety disorder: Plan: - will add PRN lorazepam for short term - Patient was informed risks of benzo use including but not limited to sedation, fall risk and risk of cognitive problems including memory problems. Patient was also informed risks of abruptly stopping medication including seizure and delirium. Patient was informed about clinic's control substance policy which includes but not limited to random UDS, no early refills, no authorization for lost script or pills and not to use illicit substanc (more content not included)... [facility] MR/BMS.BPon 05-05-2024 MR/BMS.BP [facility], [address] [place] [address] OFFICE VISIT Date of Service: 05/05/24 MR#: [id number] Acct: [id number] Name: TOPHER GONZALEZ Rep #: [id number] : 1985 Provider: Dr. Dedrick Buckner se, DO Age/Sex: 38/M Location: [facility] [place] Status: Signed Intake Vital Signs 03/08/24 07:05 05/05/24 07:01 Height 6 ft 6 ft Weight: 219 lb BMI 29.7 BP 126/72 H 122/72 H Blood Pressure Location Lt brachial Lt brachial Position Sitting Sitting Respiration 16 16 Pulse 73 77 Pulse Source Monitor Monitor BP Intake Visit Reasons: 2 M FU Accompanied by: Self Allergies No Known Allergies Allergy (Verified 05/05/24 07:03) Medications ???Medication ???Instructions ???Recorded ???Confirmed ???Type doxepin 10 mg capsule 10 mg PO QHS PRN for insomnia #90 02/01/24 05/05/24 Rx caps hydroxyzine HCl 25 mg tablet 25 mg PO TID PRN anxiety #90 tabs 03/08/24 05/05/24 Rx lamotrigine 100 mg tablet 100 mg PO QHS depressive disorder 05/05/24 05/05/24 Rx #30 tabs lurasidone 60 mg tablet 60 mg PO QPM #30 tabs 05/05/24 Rx PFSH Medical History ADHD Major depressive disorder Cannabis use disorder Bipolar 2 disorder Generalized anxiety disorder Social History Smoking Status: Never smoker substance use type: does not use HPI History of Present Illness History provided by: patient HPI: Topher Gonzalez is a 38 year old male who presents today for follow up evaluation. Patient reports that he been feeling somewhat more anxious in recent past. 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 Doesn't get to full blown panic attacks, but does have spikes. Has been able to sleep despite these symptoms. Feels like he has been vegging out a lot of the time. Has been able to eat largely well. Still following with Krystal Cano twice per week. Denies SI/HI or AVH. Unsure if medications are helpful to this point. Denies any rash from lamotrigine. Review of Systems Constitutional Denies: fever(s), chills, change in weight or fatigue Eyes Denies: change in vision or blurry vision Ears, Nose, Mouth, Throat Denies: throat pain, neck pain or change in hearing Cardiovascular Denies: chest pain, palpitations or dyspnea Respiratory Denies: dyspnea, cough or wheezing Gastrointestinal Denies: abdominal pain, nausea, vomiting, diarrhea or constipation Genitourinary Denies: dysuria or urinary frequency Musculoskeletal Denies: back pain, neck pain, joint pain or muscle weakness Integumentary/Breast Denies: rash or new lesions Neurological Denies: headache(s), dizziness or confusion Endocrine Denies: fatigue or excessive sweating Hematologic/Lymphatic Denies: easy bruising or easy bleeding Allergic/Immunologic Denies: wheezing Exam Mental Status Exam - Psych Appearance casually dressed Attitude cooperative Activity/Motor Behavior MSE activity/motor behavior finding no adventitious movements Speech regular volume, regular prosody and slow Mood depressed Affect restricted Thought Process linear, logical and coherent Thought Content no delusions and no hallucinations Suicidal Ideation passive; Not active, No intent, No plans and No means Homicidal Ideation none Attention intact Concentration intact Sensorium/Orientation awake, alert and oriented x3 Memory/Cognition other (appropriate for stated age) Insight fair Judgement good Assessment Plan Assessment Plan (1) ADHD: Plan: - We will hold off Concerta secondary to ongoing mood symptoms (2) Major depressive disorder: Qualifiers: Major depression recurrence: recurrent Active/Remission status: currently active Major depression episode severity: severe Psychotic features: without psychotic features Qualified Code(s): F33.2 - Major depressive disorder, recurrent severe without psychotic features Plan: - Continue lurasidone 60 mg every day as increased during hospitalization ??? Increase lamotrigine to 100 mg -Again discussed Primitivo however he is to update his decision pending how he does in the near future once stressors are reduced (3) Generalized anxiety disorder: Plan: -Continue hydroxyzine 25 mg TID PRN for anxiety Medications: Changed From lamotrigine 50 mg (2 x 25 mg) PO QHS 60 tabs 0RF depressive disorder To lamotrigine 100 mg PO QHS 30 tabs 2RF depressive disorder From lurasidone must administer with food (at least 350 calories) 60 mg PO QAM F33.2 - Major depressive disorder, recurrent severe without psychotic features To lurasidone must administer with food (at least 350 calories) 60 mg PO QPM 30 tabs 2RF F33.2 - Major depressiv (more content not included)... [facility] MR/BMS.BPon 04-20-2024 MR/BMS.BP [facility], [address] [place] [address] OFFICE VISIT Date of Service: 04/20/24 MR#: [id number] Acct: [id number] Name: TOPHER GONZALEZ Rep #: [id number] : 1985 Provider: Dr. Dedrick Buckner se DO Age/Sex: 38/M Location: [facility] [place] Status: Signed Intake Vital Signs 03/08/24 07:05 04/20/24 13:34 Height 6 ft 6 ft Weight: 219 lb BMI 29.7 BP 126/72 H 137/76 H Blood Pressure Location Lt brachial Lt brachial Position Sitting Sitting Respiration 16 16 Pulse 73 108 H Pulse Source Monitor Monitor BP Intake Visit Reasons: f/u from [facility] Accompanied by: Self Allergies No Known Allergies Allergy (Verified 04/20/24 13:35) Medications ???Medication ???Instructions ???Recorded ???Confirmed ???Type doxepin 10 mg capsule 10 mg PO QHS PRN for insomnia #90 02/01/24 04/20/24 Rx caps hydroxyzine HCl 25 mg tablet 25 mg PO TID PRN anxiety #90 tabs 03/08/24 04/20/24 Rx lurasidone 40 mg tablet 60 mg PO QAM 04/20/24 04/20/24 His tory lamotrigine 25 mg tablet 50 mg (2 x 25 mg) PO QHS 04/21/24 04/21/24 Rx depressive disorder #60 tabs PFSH Medical History ADHD Major depressive disorder Cannabis use disorder Bipolar 2 disorder Generalized anxiety disorder Social History Smoking Status: Never smoker substance use type: does not use HPI History of Present Illness History provided by: patient HPI: Topher Gonzalez is a 38 year old male who presents today for follow up evaluation. Patient admits to having been exceptionally depressed throughout February and had been masking how severe symptoms would be. Experienced worsening thoughts of suicide with plan of overdose, gun shot or knives. Was at [facility] and had lamotrigine added. Has been feeling somewhat better in recent past. 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 Relationship with family has been somewhat improved in recent past. Still somewhat strained with his brother. Continues to follow with Krystal Cano twice a week at this time. Sleep has been not great. Has been taking doxepin and will fall asleep, but is up several times per night. Denies SI/HI or AVH. Review of Systems Constitutional Denies: fever(s), chills, change in weight or fatigue Eyes Denies: change in vision or blurry vision Ears, Nose, Mouth, Throat Denies: throat pain, neck pain or change in hearing Cardiovascular Denies: chest pain, palpitations or dyspnea Respiratory Denies: dyspnea, cough or wheezing Gastrointestinal Denies: abdominal pain, nausea, vomiting, diarrhea or constipation Genitourinary Denies: dysuria or urinary frequency Musculoskeletal Denies: back pain, neck pain, joint pain or muscle weakness Integumentary/Breast Denies: rash or new lesions Neurological Denies: headache(s), dizziness or confusion Endocrine Denies: fatigue or excessive sweating Hematologic/Lymphatic Denies: easy bruising or easy bleeding Allergic/Immunologic Denies: wheezing Exam Mental Status Exam - Psych Appearance casually dressed Attitude guarded Activity/Motor Behavior MSE activity/motor behavior finding no adventitious movements Speech regular volume, regular prosody and slow Mood depressed Affect restricted Thought Process linear, logical and coherent Thought Content no delusions and no hallucinations Suicidal Ideation passive; Not active, No intent, No plans and No means Homicidal Ideation none Attention intact Concentration intact Sensorium/Orientation awake, alert and oriented x3 Memory/Cognition other (appropriate for stated age) Insight fair Judgement good Assessment Plan Assessment Plan (1) ADHD: Plan: - We will hold off Concerta secondary to ongoing mood symptoms (2) Major depressive disorder: Qualifiers: Active/Remission status: currently active Major depression episode severity: severe Major depression recurrence: recurrent Psychotic features: without psychotic features Qualified Code(s): F33.2 - Major depressive disorder, recurrent severe without psychotic features Plan: - Continue lurasidone 60 mg every day as increased during hospitalization ??? We will increase lamotrigine to 50 mg at bedtime ??? I believe suspicion for bipolar disorder is elevated at this time (3) Generalized anxiety disorder: Plan: - add hydroxyzine 25 mg TID PRN for anxiety Medications: New lamotrigine 50 mg (2 x 25 mg) PO QHS 60 tabs 0RF depressive disorder Changed From lurasidone must administer with food (at least 350 calories) 40 mg PO QAM 30 days 30 tabs 2RF F33.2 - Major depressive disorder, recurrent severe without psychotic features To lurasidone must administe (more content not included)... [facility] MR/BMS.BPon 03-08-2024 MR/BMS.BP [facility] [address] [place] [address], [address] [place] [address] OFFICE VISIT Date of Service: 03/08/24 MR#: [id number] Acct: [id number] Name: TOPHER GONZALEZ Rep #: [id number] : 1985 Provider: Dr. Dedrick Buckner se, DO Age/Sex: 38/M Location: [facility] [place] Status: Signed Intake Vital Signs 02/01/24 07:08 03/08/24 07:05 Height 6 ft 6 ft Weight: 219 lb BMI 29.7 BP 126/72 H Blood Pressure Location Lt brachial Position Sitting Respiration 16 Pulse 73 Pulse Source Monitor BP Intake Visit Reasons: 6 wk FU Accompanied by: Self Allergies No Known Allergies Allergy (Verified 03/08/24 07:09) Medications ???Medication ???Instructions ???Recorded ???Confirmed ???Type doxepin 10 mg capsule 10 mg PO QHS PRN for insomnia #90 02/01/24 03/08/24 Rx caps methylphenidate HCl 27 mg 27 mg PO DAILY 30 days #30 tabs 02/01/24 03/08/24 Rx tablet,extended release 24 hr hydroxyzine HCl 25 mg tablet 25 mg PO TID PRN anxiety #90 tabs 03/08/24 03/08/24 Rx lurasidone 40 mg tablet 40 mg PO QAM 30 days #30 tabs 03/08/24 03/08/24 Rx methylphenidate HCl 27 mg 27 mg PO DAILY 30 days #30 tabs 03/08/24 03/08/24 Rx tablet,extended release 24 hr PFSH Medical History ADHD Major depressive disorder Cannabis use disorder Bipolar 2 disorder Generalized anxiety disorder Social History Smoking Status: Never smoker substance use type: does not use HPI History of Present Illness History provided by: patient HPI: Topher Gonzalez is a 38 year old male who presents today for follow up evaluation. Patient reports that he has been about the same. 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 Has bene taking lurasidone for about 3 weeks now. Denies any side effects, but doesn't notice any significant side effects. Sleep has been good, and has not used any doxepin. Has been following with Krystal Cano at [facility]. Sees her about once a week. Appetite has been somewhat increased. Denies SI/HI or AVH. Review of Systems Constitutional Denies: fever(s), chills, change in weight or fatigue Eyes Denies: change in vision or blurry vision Ears, Nose, Mouth, Throat Denies: throat pain, neck pain or change in hearing Cardiovascular Denies: chest pain, palpitations or dyspnea Respiratory Denies: dyspnea, cough or wheezing Gastrointestinal Denies: abdominal pain, nausea, vomiting, diarrhea or constipation Genitourinary Denies: dysuria or urinary frequency Musculoskeletal Denies: back pain, neck pain, joint pain or muscle weakness Integumentary/Breast Denies: rash or new lesions Neurological Denies: headache(s), dizziness or confusion Endocrine Denies: fatigue or excessive sweating Hematologic/Lymphatic Denies: easy bruising or easy bleeding Allergic/Immunologic Denies: wheezing Exam Mental Status Exam - Psych Appearance casually dressed Attitude cooperative Activity/Motor Behavior MSE activity/motor behavior finding no adventitious movements Speech regular volume, regular prosody and slow Mood euythmic Affect restricted Thought Process linear, logical and coherent Thought Content no delusions and no hallucinations Suicidal Ideation none; Not active and No intent Homicidal Ideation none Attention intact Concentration intact Sensorium/Orientation awake, alert and oriented x3 Memory/Cognition other (appropriate for stated age) Insight good Judgement good Assessment Plan Assessment Plan (1) ADHD: Plan: - Doing largely well in Concerta will continue as scheduled - The patients OARRS report was reviewed and appropriate. No suspicious activity was noted. (2) Major depressive disorder: Qualifiers: Major depression recurrence: recurrent Active/Remission status: currently active Major depression episode severity: severe Psychotic features: without psychotic features Qualified Code(s): F33.2 - Major depressive disorder, recurrent severe without psychotic features Plan: - will increase lurasidone to 40 mg every day for MDD with mixed features; aware has to eat 350 kcal with medication - Patient was informed of the risk, benefits, and possible side effects of antipsychotics medications. Side effects of these medications can include but are not limited to orthostatic hypotension (low blood pressure), weight gain, metabolic side effects, extrapyramidal side effects, and tardive dyskinesia. If you notice any abnormal movements including involuntary movement of muscles of face, lips, torso or legs please contact the office immediately. - use doxepin as needed for sleep (3) Generalized anxiety disorder: Plan: - has stopped buspar - add hydroxy (more content not included)... [facility] MR/BMS.BPon 02-01-2024 MR/BMS.BP [facility] [address], [address] [place] [address] OFFICE VISIT Date of Service: 02/01/24 MR#: [id number] Acct: [id number] Name: TOPHER GONZALEZ Rep #: [id number] : 1985 Provider: Dr. Dedrick Buckner se, DO Age/Sex: 38/M Location: [facility] [place] Status: Signed Intake Vital Signs 09/16/23 07:04 02/01/24 07:08 Height 6 ft 6 ft BP 124/73 H Blood Pressure Location Rt brachial Position Sitting Pulse 65 Pulse Source Monitor BP Intake Visit Reasons: 3 M FU Allergies No Known Allergies Allergy (Verified 09/16/23 07:05) [facility] Medical History ADHD Major depressive disorder Cannabis use disorder Bipolar 2 disorder Generalized anxiety disorder Social History Smoking Status: Never smoker substance use type: does not use HPI History of Present Illness History provided by: patient HPI: Topher Gonzalez is a 38 year old male who presents today for follow up evaluation. Patient reports that he has been good for the most part. Feels like he has lost his spirit over the course of the last month. Went a month with methylphenidate that didn't seem efficacious but has since gotten a new prescription which has seemed to be better. 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 This has led to some discord within his family as they find this risky. Does not feel as depressed as he has been previously and believes it is partially because of holidays and family discord. Has found that he has been procrastinating more than usual. Went to [employer] in [place]. Denies SI/HI or AVH. Stopped taking Auvelity around September of this year. Has been sleeping well, getting about 8-9 hours at night. Has been somewhat irritable in recent past. Does believe that he has highs and lows and does not believe decision making was impulsive. Does feel like thoughts are somewhat racing. Has been seeing Krystal Cano at [facility]. Review of Systems Constitutional Denies: fever(s), chills, change in weight or fatigue Eyes Denies: change in vision or blurry vision Ears, Nose, Mouth, Throat Denies: throat pain, neck pain or change in hearing Cardiovascular Denies: chest pain, palpitations or dyspnea Respiratory Denies: dyspnea, cough or wheezing Gastrointestinal Denies: abdominal pain, nausea, vomiting, diarrhea or constipation Genitourinary Denies: dysuria or urinary frequency Musculoskeletal Denies: back pain, neck pain, joint pain or muscle weakness Integumentary/Breast Denies: rash or new lesions Neurological Denies: headache(s), dizziness or confusion Endocrine Denies: fatigue or excessive sweating Hematologic/Lymphatic Denies: easy bruising or easy bleeding Allergic/Immunologic Denies: wheezing Exam Mental Status Exam - Psych Appearance casually dressed Attitude cooperative Activity/Motor Behavior MSE activity/motor behavior finding no adventitious movements Speech regular volume, regular prosody and slow Mood euythmic Affect restricted Thought Process linear, logical and coherent Thought Content no delusions and no hallucinations Suicidal Ideation none; Not active and No intent Homicidal Ideation none Attention intact Concentration intact Sensorium/Orientation awake, alert and oriented x3 Memory/Cognition other (appropriate for stated age) Insight good Judgement good Assessment Plan Assessment Plan (1) ADHD: Plan: - Doing largely well in Concerta will continue as scheduled - The patients OARRS report was reviewed and appropriate. No suspicious activity was noted. (2) Major depressive disorder: Qualifiers: Major depression recurrence: recurrent Active/Remission status: currently active Major depression episode severity: severe Psychotic features: without psychotic features Qualified Code(s): F33.2 - Major depressive disorder, recurrent severe without psychotic features Plan: - will start lurasidone 20 mg every day for MDD with mixed features; aware has to eat 350 kcal with medication - Patient was informed of the risk, benefits, and possible side effects of antipsychotics medications. Side effects of these medications can include but are not limited to orthostatic hypotension (low blood pressure), weight gain, metabolic side effects, extrapyramidal side effects, and tardive dyskinesia. If you notice any abnormal movements including involuntary movement of muscles of face, lips, torso or legs please contact the office immediately. - use doxepin as needed for sleep (3) Generalized anxiety disorder: Plan: - has stopped buspar Medications: New lurasidone must administer with food (at least 350 calories) 20 mg PO QAM 30 tabs (more content not included)... [facility] MR/BMS.BPon 09-16-2023 MR/BMS.BP [facility] [address] [place] [address], [address] [place] [address] OFFICE VISIT Date of Service: 09/16/23 MR#: [id number] Acct: [id number] Name: TOPHER GONZALEZ Rep #: [id number] : 1985 Provider: Dr. Dedrick Buckner se, DO Age/Sex: 37/M Location: [facility] [place] Status: Signed Intake Vital Signs 07/29/23 07:37 09/16/23 07:02 09/16/23 07:04 Height 6 ft 6 ft 6 ft BP 133/83 H 124/73 H Blood Pressure Location Rt brachial Rt brachial Position Sitting Sitting Pulse 71 65 Pulse Source Monitor Monitor BP Intake Visit Reasons: follow up Pst Supervisor Required: No Accompanied by: Self Is patient in pain?: No Allergies No Known Allergies Allergy (Verified 09/16/23 07:05) Medications ???Medication ???Instructions ???Recorded ???Confirmed ???Type dextromethorphan IR 45 1 tab PO BID #60 ea 09/16/23 09/16/23 Rx mg-bupropion ER 105 mg biphasic tablet (Auvelity) doxepin 10 mg capsule 10 mg PO QHS PRN for insomnia #90 09/16/23 09/16/23 Rx caps methylphenidate HCl 27 mg 27 mg PO DAILY 30 days #30 tabs 09/16/23 09/16/23 Rx tablet,extended release 24 hr methylphenidate HCl 27 mg 27 mg PO DAILY 30 days #30 tabs 09/16/23 09/16/23 Rx tablet,extended release 24 hr methylphenidate HCl 27 mg 27 mg PO DAILY 30 days #30 tabs 09/16/23 09/16/23 Rx tablet,extended release 24 hr (Concerta) Current gender identity: male Nurse's Note: Presents to the office today for follow up. [facility] Medical History ADHD Major depressive disorder Cannabis use disorder Bipolar 2 disorder Generalized anxiety disorder Social History Smoking Status: Never smoker substance use type: does not use HPI History of Present Illness History provided by: patient HPI: Topher Gonzalez is a 37 year old male who presents today for follow up evaluation. Patient reports that he is doing not too bad. Feels like Concerta is working pretty well. Does sometimes have some difficulty with getting to sleep if he takes too late. Finds that most of the time it lasts about 12 hours if he is active. Has not had any reduction in appetite. Sleep has been fair as long as he takes early enough. Mood has been really good for the last 3 weeks or so. Has not seen Ev Bright for therapy for several weeks. Has been spending some more money in recent past. Denies any SI/HI or AVH at this time. Review of Systems Constitutional Denies: fever(s), chills, change in weight or fatigue Eyes Denies: change in vision or blurry vision Ears, Nose, Mouth, Throat Denies: throat pain, neck pain or change in hearing Cardiovascular Denies: chest pain, palpitations or dyspnea Respiratory Denies: dyspnea, cough or wheezing Gastrointestinal Denies: abdominal pain, nausea, vomiting, diarrhea or constipation Genitourinary Denies: dysuria or urinary frequency Musculoskeletal Denies: back pain, neck pain, joint pain or muscle weakness Integumentary/Breast Denies: rash or new lesions Neurological Denies: headache(s), dizziness or confusion Endocrine Denies: fatigue or excessive sweating Hematologic/Lymphatic Denies: easy bruising or easy bleeding Allergic/Immunologic Denies: wheezing Exam Mental Status Exam - Psych Appearance casually dressed Attitude cooperative Activity/Motor Behavior MSE activity/motor behavior finding no adventitious movements Speech regular volume, regular prosody and slow Mood euythmic Affect restricted Thought Process linear, logical and coherent Thought Content no delusions and no hallucinations Suicidal Ideation none; Not active and No intent Homicidal Ideation none Attention intact Concentration intact Sensorium/Orientation awake, alert and oriented x3 Memory/Cognition other (appropriate for stated age) Insight good Judgement good Assessment Plan Assessment Plan (1) ADHD: Plan: - Doing largely well in Concerta will continue as scheduled (2) Major depressive disorder: Qualifiers: Major depression recurrence: recurrent Active/Remission status: currently active Major depression episode severity: severe Psychotic features: without psychotic features Qualified Code(s): F33.2 - Major depressive disorder, recurrent severe without psychotic features Plan: - Continue Auvelity, does find beneficial for mood - use doxepin as needed for sleep (3) Generalized anxiety disorder: Plan: - Continue buspar Medications: New methylphenidate HCl ER 27 mg PO DAILY 30 tabs 0RF 30 days F90.9 - Attention-deficit hyperactivity disorder, unspecified type methylphenidate HCl ER 27 mg PO DAILY 30 tabs 0RF 30 days F90.9 - Attention-deficit hyperactivity disorder, unspecified type Refilled doxepin 10 (more content not included)... [facility] MR/BMS.BPon 07-29-2023 MR/BMS.BP [facility] [address], [address] [place] [id number] OFFICE VISIT Date of Service: 07/29/23 MR#: [id number] Acct: [id number] Name: TOPHER GONZALEZ Rep #: [id number] : 1985 Provider: Dr. Dedrick Buckner se, DO Age/Sex: 37/M Location: [facility] [place] Status: Signed Intake Vital Signs 05/28/23 07:35 07/29/23 07:34 07/29/23 07:37 Height 6 ft 6 ft 6 ft BP 133/83 H Blood Pressure Location Rt brachial Position Sitting Pulse 71 Pulse Source Monitor BP Intake Visit Reasons: 2 M FU Pst Supervisor Required: No Accompanied by: Self Is patient in pain?: No Allergies No Known Allergies Allergy (Verified 07/29/23 07:38) Medications ???Medication ???Instructions ???Recorded ???Confirmed ???Type doxepin 10 mg capsule 10 mg PO QHS PRN sleep #30 caps 05/11/23 07/29/23 Rx dextromethorphan IR 45 1 tab PO BID #60 ea 07/15/23 07/29/23 Rx mg-bupropion ER 105 mg biphasic tablet (Auvelity) methylphenidate HCl 27 mg 27 mg PO DAILY 30 days #30 tabs 07/29/23 07/29/23 Rx tablet,extended release 24 hr (Concerta) Current gender identity: male Nurse's Note: Presents to the office today for follow up. [facility] Medical History (Updated 07/29/23 @ 07:[address] Dedrick Mayfield DO) ADHD Major depressive disorder Cannabis use disorder Bipolar 2 disorder Generalized anxiety disorder Social History Smoking Status: Never smoker substance use type: does not use HPI History of Present Illness History provided by: patient Chief complaint: depression HPI: Topher Gonzalez is a 37 year old male who presents today for follow up evaluation. Patient reports that he has been alright. Has stopped abilify about a week ago. Still having some brain fog symptoms. Is able to tolerate this to this point. 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 Sleep had been good up until the last few nights. Had been getting to bed somewhat later. Following with Ev Angelo every couple of weeks for therapy. Was previously taking Concerta with good benefit for ADHD. Denies SI/HI or AVH. Review of Systems Constitutional Denies: fever(s), chills, change in weight or fatigue Eyes Denies: change in vision or blurry vision Ears, Nose, Mouth, Throat Denies: throat pain, neck pain or change in hearing Cardiovascular Denies: chest pain, palpitations or dyspnea Respiratory Denies: dyspnea, cough or wheezing Gastrointestinal Denies: abdominal pain, nausea, vomiting, diarrhea or constipation Genitourinary Denies: dysuria or urinary frequency Musculoskeletal Denies: back pain, neck pain, joint pain or muscle weakness Integumentary/Breast Denies: rash or new lesions Neurological Denies: headache(s), dizziness or confusion Endocrine Denies: fatigue or excessive sweating Hematologic/Lymphatic Denies: easy bruising or easy bleeding Allergic/Immunologic Denies: wheezing Exam Mental Status Exam - Psych Appearance casually dressed Attitude cooperative Activity/Motor Behavior MSE activity/motor behavior finding no adventitious movements Speech regular volume, regular prosody and slow Mood euythmic Affect restricted Thought Process linear, logical and coherent Thought Content no delusions and no hallucinations Suicidal Ideation none; Not active and No intent Homicidal Ideation none Attention intact Concentration intact Sensorium/Orientation awake, alert and oriented x3 Memory/Cognition other (appropriate for stated age) Insight good Judgement good Assessment Plan Assessment Plan (1) Major depressive disorder: Qualifiers: Major depression recurrence: recurrent Active/Remission status: currently active Major depression episode severity: severe Psychotic features: without psychotic features Qualified Code(s): F33.2 - Major depressive disorder, recurrent severe without psychotic features Plan: - Continue Auvelity ??? Has stopped abilify about a month ago and doing well - use doxepin as needed for sleep (2) Generalized anxiety disorder: Plan: - Continue buspar (3) ADHD: Plan: - previously reports to doing well with Concerta in past, will restart at previous dosing of 27 mg every day - Patient was informed about stimulant side effects including but not limited to tics, decrease in appetite, anxiety psychosis, increase in heart rate and BP, arrhythmia and stroke.??? Patient was informed about clinic's control substance policy which includes but not limited to random UDS, no early refills, no authorization for lost script or pills and not to use illicit substance and alcohol which patient agreed to and verbalized understanding. - Patient was informed of the clinic's controlled substance policy. This inclu (more content not included)... [facility] GLUon 11-07-2016 Glucose mass conc 89 mg/dL Normal 70-105 [facility] ([place]) Comment on above: Performed By: #### Laron BERGERON, LIPID ####[address] [place] [address] LIPIDon 11-07-2016 Cholesterol 200 mg/dL Normal 131-200 [facility] ([place]) Comment on above: Result Comment: Chol esterol Reference Interval:Less than 200 [id number] Borderline high [id number] and above High risk Performed By: #### Laron BERGERON, LIPID ####[address] [place] [address] HDL Cholesterol 52 mg/dL Normal 35-90 [facility] ([place]) Comment on above: Result Comment: HDL Reference Interval:Less than 40 Low - high risk60 or above Optimal/lowers risk Performed By: #### Laron BERGERON, LIPID ####[address] [place] [address] LDL Cholesterol 138 mg/dL High 0-130 [facility] ([place]) Comment on above: Result Comment: LDL is a calculated result and requires a 12- hr fast.LDL Reference Interval:Less than 100 [id number] Near or above [id number] Borderline high [id number] High avxc469 and above Very high risk Performed By: #### Laron BERGERON, LIPID ####[address] [place] [address] Triglyceride 52 mg/dL Normal 40-150 [facility] ([place]) Comment on above: Result Comment: Trig lyceride Reference Interval:Less than 150 [id number] Borderline high [id number] High qykz175 or higher Very high risk Performed By: #### Laron BERGERON, LIPID ####[address] [place], [place] [address] Encounters Encounter Date Encounter Type Care Provider Facility Start: 07-06-2024 End: 07-06-2024 ambulatory Dedrick L Seese [facility] Start: 06-06-2024 End: 06-06-2024 ambulatory Dedrick L Seese [facility] Start: 05-05-2024 End: 05-05-2024 ambulatory Dedrick L Seese [facility] Start: 04-20-2024 End: 04-20-2024 ambulatory Dedrick L Seese [facility] Start: 03-08-2024 End: 03-08-2024 ambulatory Dedrick L Seese [facility] Start: 02-01-2024 End: 02-01-2024 ambulatory Dedrick L Seese [facility] Start: 09-16-2023 End: 09-16-2023 ambulatory Dedrick L Seese [facility] Start: 07-29-2023 End: 07-29-2023 ambulatory Dedirck L Seese [facility] Start: 11-06-2016 End: 11-11-2016 Ambulatory BARNEY CABRAL Facility:[facility] Payers Date Payer Category Payer Self-pay 2016 Unknown [id number] Unknown [id number] . [id number] Unknown [id number] Unknown [id number] Unknown [id number] Unknown [id number] . [id number] Unknown [id number] Unknown [id number] Unknown [id number] . [id number] Summary Purpose Family History No Family History Records FoundNo Family History Records Found Advance Directives No Advanced Directives Records FoundNo Advanced Directives Records Found Additional Source Comments (unrecognized sect ion and content) No Status Records FoundNo Status Records Found INFORMATION SOURCE (unrecogn ized section and content) DATE CREATED AUTHOR 08/12/2017 [facility] ([place]) DATE CREATED AUTHOR AUTHOR'S KHUSHBU ATJAZIEL 07/06/2024 [facility] FOR RECORDS PERTAINING TO PATIENTS WHO ARE OR HAVE BEEN ENROLLED IN A CHEMICAL DEPENDENCY/SUBSTANCEABUSE PROGRAM, SOME INFORMATION MAY BE OMITTED. This clinical summary was aggregated from multiple sources. Caution should be exercised in using it in the provision of clinical care. This summary normalizes information from multiple sources, and as a consequence, information in this document may materially change the coding, format and clinical context of patient data. In addition, data may be omitted in some cases. CLINICAL DECISIONS SHOULD BE BASED ON THE PRIMARY CLINICAL RECORDS. [employer]. provides no warranty or guarantee of the accuracy or completeness of information in this document.
--- NOTE | 2024-08-06 14:10 | RAD_ITS ---
PROCEDURE: CHEST PA AND LATERAL 08/06/2024 REASON FOR EXAM: CHEST PAIN TECHNIQUE: CHEST PA AND LATERAL COMPARISON: None FINDINGS: Hardware: None. Heart: Normal size Mediastinum: Contours Lungs: Expanded and clear. Bones: No aggressive bone lesion RAD/Chest PA and Lateral IMPRESSION: No acute process. Reading [facility]
[2024-08-06 14:33] LABS: Absolute Lymphocyte Count 1.38 X10^3/uL (0.83-4.51); Absolute Neutrophil Count 4.8 X10^3/uL (2.0-7.7); Basophil# 0.02 X10^3/uL; Basophil% 0.3 % (0-1); Eosinophil# 0.05 X10^3/uL; Eosinophils% 0.7 % (0-5); Hematocrit 42.3 % (40-54); Hemoglobin 14.8 g/dL (13.0-16.5); Lymphocyte # 1.38 X10^3/ul (0.83-4.51); Lymphocyte % 20.3 % (19-41); Mean Corpuscular Hgb 30.3 pg (27.0-32.0); Mean Corpuscular Volume 86.7 fL (80-94); Mean Platelet Vol. 10.1 fl (6.2-12.0); Monocyte# 0.51 X10^3/uL; Monocyte% 7.5 % (0-10); NRBC Flagged by Analyzer 0 % (0-5); Neutrophil # 4.84 X10^3/uL (2.7-7.7); Neutrophil % 71.1 % (47-70); Platelet Count 292 K/mm3 (150-450); RBC Distribution Width CV 12.1 % (11.6-14.6); RBC Distribution Width SD 38.5 fl (35.1-43.9); Red Blood Count 4.88 M/mm3 (4.6-6.2); White Blood Count 6.8 K/mm3 (4.4-11.0)
[2024-08-06 15:16] LABS: Troponin T High Sensitivity < 6 ng/L (<=22)
[2024-08-06 15:18] VITALS: BP 108/70; PULSE 78; RESP 17; O2SAT 96
[2024-08-06 15:30] VITALS: PULSE 78; RESP 16; O2SAT 97
[2024-08-06 15:41] LABS: Anion Gap 12 (5-15); BUN 14 mg/dL (4-19); BUN/Creat Ratio 11.7 RATIO (10-20); Calcium,Total 9.1 mg/dL (7.6-11.0); Carbon Dioxide 22.7 mmol/L (21.0-32.0); Chloride 105 mmol/L (98-108); Creatinine, Serum 1.15 mg/dL (0.70-1.20); EST Glomerular Filtration Rate 85 (>60); Glucose 109 mg/dL (70-99); Potassium 4.3 mmol/L (3.3-5.1); Sodium Level 140 mmol/L (133-145)
[2024-08-06 16:02] VITALS: BP 109/70; PULSE 77; RESP 16; TEMP 36.9; O2SAT 97
== END 2024-08-06 16:05 | disposition home or self-care (01) ==
PROVIDERS: Emergency Provider Emergency Medicine; PCP Nurse Practitioner Family; Visit Provider Emergency Medicine
DX: F41.1 Generalized anxiety disorder (principal); F31.81 Bipolar II disorder; R07.9 Chest pain, unspecified; Z79.899 Other long term (current) drug therapy
CPT/HCPCS: 71046; 80048; 84443; 84484; 85025; 93005; 99284; A4216